=== PATIENT | female | born 1985 | race Caucasian/White ===

== ENCOUNTER 2018-10-06 07:35 | Emergency (ER) | payer OTHER ==
[~2018-10-06] VITALS: Ht 172.7 cm; Wt 66.7 kg
[~2018-10-06 07:35] MED LIST: AUGMENTIN 875-1 EACH PO; CEPHALEXIN500 MG PO; IBUPROFEN200 M1 PO; IBUPROFEN600 MG PO; LEVONORGESTREL1 EACH PO; NORCO 5-325 TA1 EACH PO; PENICILLIN V P500 MG PO; POTASSIUM CHLO10 MEQ PO; PRENATAL VITAM1 EAC3 PO; PRENATAL-FOLIC1 EACH PO; ZOFRAN ODT8 MG PO
--- OUTSIDE RECORDS SUMMARY | 2018-10-06 07:40 | XMS ---
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 E.Julius VISIT COUNT (12 MO.) [facility] [address] [place] [address] TOTAL 3 NOTE: Visits indicate total known visits. ED/UCC VISIT TRACKING (12 MO.) 10/06/2018 07:36 ANJEL Jerry [place] TYPE: Emergency COMPLAINT: - L [facility]BD PA[facility] DIAGNOSES: - Kidney Stone - Flank Pain - Lobulated, fused and horseshoe kidney - Calculus of ureter 09/29/2018 02:40 ANJEL Jerry [place] TYPE: Emergency COMPLAINT: - BLOOD IN URINE DIAGNOSES: - Hydronephrosis with renal and ureteral calculous obstruction - Nicotine dependence, unspecified, uncomplicated - Hypokalemia - Lobulated, fused and horseshoe kidney - Unspecified abdominal pain INPATIENT VISIT TRACKING (12 MO.) No inpatient visits to display in this time frame [id number]
== END 2018-10-06 11:06 | disposition home or self-care (01) ==
LOC: ED 07:35
DX: K59.00 Constipation, unspecified (principal); F17.200 Nicotine dependence, unspecified, uncomplicated; Z79.899 Other long term (current) drug therapy
CPT/HCPCS: 74018; 80053; 81001; 83690; 84703; 85025; 87088; 96374; 99284-25; 99406; J2405

== ENCOUNTER 2019-07-28 20:04 | Emergency (ER) | payer OTHER ==
--- OUTSIDE RECORDS SUMMARY | ~2019-07-28 | XMS | Clinical Summary ---
Demographics + + + | Address | [address] | | | [place] [address] | + + + | Home Phone | | + + + | Preferred Language | Unknown | + + + | Marital Status | Single | + + + | Samaritan Affiliation | Unknown | + + + | Race | Unknown | + + + | Ethnic Group | Unknown | + + + Author + + + | Author | [facility] | | | and Giovanyana | + + + | Organization | [facility] | | | and [...] Team Providers + +------+ + | Care Push Button Switch Assembler Name | Role | Phone | + [...] tablets by | 30 | 0 | /0 | | Activ | | HYDROcodone-acetamin | [...] + + + + | Name | Dates Previously Given | Next Due | + + + [...] Day | | 0.75 | | Started: 1997 | | Smoker | | | | | + +-------+ +--------+ + + +---+---+---+ | Smokeless Tobacco: | | | | | Never Used | | | | + +---+---+---+ + + +---------+ + | Alcohol Use | Drinks/We | oz/Week | Comments | | | ek | | | + + +---------+ + | Yes | 2 Shots | 1.2 | 3 times a week | | | of | | | | | liquor | | | + + +---------+ + + + [...] Filed Vital Signs + + + + | Vital Sign | Reading | Time Taken | + + + + | Blood Pressure | 147/84 | 10/09/2018 1045 PST | + + + + | Pulse | 76 | 10/09/2018 1045 PST | + + + + | Temperature | 36.5 C (97.7 F) | 10/09/2018 0939 PST | + + + + | Respiratory Rate | 16 | 10/09/2018 1000 PST | + + + + | Oxygen Saturation | 99% | 10/09/2018 1045 PST | + + + + | Inhaled Oxygen | - | - | | Concentration | | | + + + + | Weight | 67.6 kg (149 lb 0.5 | 10/09/2018753 PST | | | oz) | | + + + + | Height | 172.7 cm (5' 8") | 10/09/2018753 PST | + + + + | Body Mass Index | 22.66 | 10/09/2018753 PST | + + + + Plan of Treatment + + + + + | Health Maintenance | Due Date | Last Done | Comments | + + + + + | Vaccine: | | | | | Pneumococcal 19-64 | 2 | | | | (PPSV23 only) Medium | | | | | Risk (1 of 1 - | | | | | PPSV23) | | | | + + [...] Frm 6 | Stent | Left: | COOK | | 07/04/ | [id number] | | 22-32 - [id number]: | | Ureter | [employer] | | 2020 | / | | Qty: 1 on 10/09/2018 by | | | - ANTONIO | | | /UFH-6 | | Mark Epps MD | | | | | | 00-R | + +-------+--------+ +--------+--------+--------+ Results Not on [...] | [employer] | MODA | [id number] | 10/03/ | [phone] | | Medica | | MEDICAID HMO [...] Person | Self | [birth year] | | | | al/Fam | | 1985 | [phone] | [place] [address] | | | yarelis | | | 8 (Home) | | + +--------+ +--------+ + + Advance Directives Patient has advance care planning documents, and code status on file. For more information, please contact:[facility] [place] [address] + + + + + | Code Status | Date | Date | Comments | | | Activated | Inactivated | | + + + + + | Full Code | 10/09/2018 | 10/09/2018 | | | | 10:02 | 13:11 | | + + + + +
--- OUTSIDE RECORDS SUMMARY | ~2019-07-28 | XMS | Clinical Summary ---
Demographics + + + | Address | [address] | | | [place] [address] | + + + | Home Phone [...] [facility] | | | and Giovanyana | + + + | Organization | [facility] | | | and [...] Team Providers + +------+ + | Care Dredge Operator Name | Role | Phone | [...] Left: | COOK | | 07/04/ | [id number] | | 22-32 - [id number]: | | Ureter | [employer] | [...] | [employer] | MODA | [id number] | 10/03/ | [phone] | | Medica | | MEDICAID HMO [...] | | al/Fam | | 1985 | [phone] | [place] [address] | | | yarelis | | | 8 (Home) | | + +--------+ +--------+ + + Advance Directives Patient has advance care planning documents, and code status on file. For more information, please contact:[facility] [place] [address] + + + + + | Code Status | Date | Date | Comments | | | Activated | Inactivated | | + + + + + | Full Code | 10/09/2018 | 10/09/2018 | | | | 10:02 | 13:11 | | + + + + +
--- OUTSIDE RECORDS SUMMARY | 2019-07-28 20:06 | XMS ---
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 Rick VISIT COUNT (12 MO.) 1 July [facility]ers TOTAL 4 NOTE: Visits indicate total known visits. ED/UCC VISIT TRACKING (12 MO.) 07/28/2019 20:04 ANJEL Jerry [place] TYPE: Emergency COMPLAINT: - FLANK PAIN 10/06/2018 07:36 ANJEL Jerry [place] TYPE: Emergency COMPLAINT: - L ABD PAIN DIAGNOSES: - Nicotine dependence, unspecified, uncomplicated - Other buttermaker (current) drug therapy - Constipation, unspecified - Unspecified abdominal pain 10/03/2018 09:[address] [facility] [place] TYPE: Emergency DIAGNOSES: - Kidney Stone - Flank Pain - Lobulated, fused and horseshoe kidney - Calculus of ureter 09/29/2018 02:40 ANJEL Roach TYPE: Emergency COMPLAINT: - BLOOD IN URINE DIAGNOSES: - Hydronephrosis with renal and ureteral calculous obstruction - Nicotine dependence, unspecified, uncomplicated - Hypokalemia - Lobulated, fused and horseshoe kidney - Unspecified abdominal pain INPATIENT VISIT TRACKING (12 MO.) No inpatient visits to display in this time frame [id number]
== END 2019-07-28 20:35 | disposition left against medical advice (07) ==
LOC: ED 20:04
DX: R10.9 Unspecified abdominal pain (principal); Z53.21 Procedure and treatment not carried out due to patient leaving prior to being seen by health care provider

== ENCOUNTER 2019-09-23 04:58 | Emergency (ER) | payer OTHER ==
[~2019-09-23] VITALS: Ht 172.7 cm; Wt 68.0 kg
--- OUTSIDE RECORDS SUMMARY | ~2019-09-23 | XMS | Encounter Summary ---
Demographics + + + | Address | [address] | | | [place] [address] | + + + | Home Phone | | + + + | Preferred Language | Unknown | + + + | Marital Status | Single | + + + | Temple Affiliation | Unknown | + + + | Race | Unknown | + + + | Ethnic Group | Unknown | + + + Author + + + | Author | [facility] | | | and Giovanyana | + + + | Organization | [facility] | | | and Giovanyana | + + + | Address | Unknown | + + + | Phone | Unavailable | + + + Support + + +---------+ + | Name | Relationship | Address | Phone | + + +---------+ + | Princess Oakes | ECON | Unknown | | + + +---------+ + Care Team Providers + +------+ + | Care Edger Automatic Name | Role | Phone | + +------+ + | Melba Arce RN | PCP | Unavailable | + +------+ + Encounter Details +--------+ + + + + | Date | Type | Department | Care Team | Description | +--------+ + + + + | 10/07/ | Episode | [facility] | Kush Laguna | | | 2018 | Changes | [address] | | | | | [place] | | | | | | [address] | | | | | | [phone] | | | +--------+ + + + + Social History + +-------+ +--------+ + | Tobacco Use | Types | Packs/Day | Years | Date | | | | | Used | | + +-------+ +--------+ + | Current Every Day | | 0.75 | | Started: 1996 | | Smoker | | | | | + +-------+ +--------+ + + +---+---+---+ | Smokeless Tobacco: | | | | | Never Used | | | | + +---+---+---+ + + +---------+ + | Alcohol Use | Drinks/Week | oz/Week | Comments | + + +---------+ + | Yes | 2 Shots of liquor | 2.0 | 3 times a week | + + +---------+ + + + + | Sex Assigned at | Date Recorded | | | | + + + | Not on file | | + + + + + + + | Job Start Date | Occupation | Industry | + + + + | Not on file | Not on file | Not on file | + + + + + + + + | Travel History | Travel Start | Travel End | + + + + + + | No recent travel history available. | + + documented as of this encounter Plan of Treatment Not on filedocumented as of this encounter Visit Diagnoses Not on filedocumented in this encounter"
--- OUTSIDE RECORDS SUMMARY | ~2019-09-23 | XMS | Encounter Summary ---
Demographics + + + | Address | [address] | | | [place] [address] | + + + | Home Phone | | + + + | Preferred Language | Unknown | + + + | Marital Status | Single | + + + | Alevism Affiliation | Unknown | + + + | Race | Unknown | + + + | Ethnic Group | Unknown | + + + Author + + + | Author | [facility] | | | and Giovanyana | + + + | Organization | [facility] | | | and Giovanyana | [...] Team Providers + +------+ + | Care Decision Support Analyst Name | Role | Phone | + +------+ + | Melba Arce RN | PCP | Unavailable | + +------+ + Encounter Details +--------+ + + + + | Date | Type | Department | Care Team | Description | +--------+ + + + + | 10/07/ | Imaging | [facility] | Provider, | | | 2017 | Exam | [facility] EXTER[facility] | [address] | | | | | IMAGING | [address] [place] | | | | | [phone] | [place] [address] | | +--------+ + + + + Social History + +-------+ +--------+------+ | Tobacco Use | Types | Packs/Day | Years | Date | | | | | Used | | + +-------+ +--------+------+ | Never Assessed | | | | | + +-------+ +--------+------+ + + + | Sex Assigned at [...] Not on filedocumented as of this encounter Procedures + +--------+ + + + | Procedure Name | Priori | Date/Time | Associated Diagnosis | Comments | | | ty | | | | + +--------+ + + + | CT ABDOMEN PELVIS WO | Routin | 09/29/2018 | | Results for this | | CONTRAST | e | 4:20 AM | | procedure are in the | | | | PST | | results section. | + +--------+ + + + documented in this encounter Results CT Abdomen Pelvis wo Contrast (09/29/2018 4:20 AM PST) + + | Specimen | + + | | + + + + + | Narrative | Performed At | + + + | External films for comparison only | [facility] | | | | | No results will be in the chart. | | + + + + +---------+ + + | Performing | Address | City/State/Zipcode | Phone Number | | Organization | | | | + +---------+ + + | [facility] | | | | + +---------+ + + documented in this encounter Visit Diagnoses Not on filedocumented in this encounter"
--- OUTSIDE RECORDS SUMMARY | ~2019-09-23 | XMS | Encounter Summary ---
Demographics + + + | Address | [address] | | | [place] [address] | + + + | Home Phone | | + + + | Preferred Language | Unknown | + + + | Marital Status | Single | + + + | Protestant Affiliation | Unknown | + + + | Race | Unknown | + + + | Ethnic Group | Unknown | + + + Author + + + | Author | [facility] | | | and Giovanyana | + + + | Organization | [facility] | | | and Giovanyana [...] Team Providers + +------+ + | Care Service Greeter Name | Role | Phone | + +------+ + | Melba Arce RN | PCP | Unavailable | + +------+ + Reason for Visit Auth/Cert +--------+--------+ + + + + | Status | Reason | Specialty | Diagnoses / | Referred By | Referred To | | | | | Procedures | Contact | Contact | +--------+--------+ + + + + | | | | Diagnoses | | | | | | | Calculus of | | | | | | | kidney | | | | | | | Kidney | | | | | | | stones | | | | | | | (N20.0) | | | | | | | Procedures | | | | | | | MD | | | | | | | CYSTO/URETER | | | | | | | O | | | | | | | W/LITHOTRIPS | | | | | | | Y &QUENTINWELL | | | | | | | STENT INSRT | | | | | | | Cystoscopy, | | | | | | | left | | | | | | | ureteroscopy | | | | | | | laser | | | | | | | lithotripsy | | | | | | | and stent | | | +--------+--------+ + + + + Encounter Details +--------+ + + + + | Date | Type | Department | Care Team | Description | +--------+ + + + + | 10/09/ | Hospital | [facility] | Mark Epps | | | 2019 | Encounter | MED CTR XRAY [address] | MD Edison [address] [place] [address] | | | | | [place] | [address] [place] | | | | | [place] [address] | [address] | | | | | [phone] | | | +--------+ + + + [...] + + documented as of this encounter Medications at Time of Discharge + + + +---------+ + + | Medication | Sig | Dispensed | Refills | Start | End Date | | | | | | Date | | + + + +---------+ + + | | Take 1-2 tablets by | 30 | 0 | 10/09/19 | | | HYDROcodone-acetamin | mouth every 6 hours | tablet | | 19 | | | ophen (NORCO) 5-325 | as needed for Pain. | | | | | | mg per tablet | | | | | | + + + +---------+ + + | tamsulosin | Take 1 capsule by | 30 | 0 | 10/03/20 | | | (FLOMAX) 0.4 mg CAPS | mouth Daily. | capsule | | 18 | | + + + +---------+ + + | tamsulosin | Take 1 capsule by | 7 | 0 | 10/09/19 | | | (FLOMAX) 0.4 mg CAPS | mouth nightly for 7 | capsule | | 19 | 9 | | | days. | | | | | + + + +---------+ + + documented as of this encounter Plan of Treatment Not on filedocumented as of this encounter Procedures + +--------+ + + + | Procedure Name | Priori | Date/Time | Associated Diagnosis | Comments | | | ty | | | | + +--------+ + + + | FL HUMZA STATS NO | Routin | 10/09/2018 | | Results for this | | CHARGE | e | 9:35 AM | | procedure are in the | | | | PST | | results section. | + +--------+ + + + documented in this encounter Results EMERALD Valencia No Kathy (10/09/2018 9:35 AM PST) + + | Specimen | + + | | + + + + + | Narrative | Performed At | + + + | This exam has been auto-finalized and the interpretation may exist | [facility] | | elsewhere in the chart. | | + + + + +---------+ + + | Performing | Address | City/State/Zipcode | Phone Number | | Organization | | | | + +---------+ + + | [facility] | | | | + +---------+ + + documented in this encounter Visit Diagnoses Not on filedocumented in this encounter"
--- OUTSIDE RECORDS SUMMARY | ~2019-09-23 | XMS | Encounter Summary ---
Demographics + + + | Address | [address] | | | [place] [address] | + + + | Home Phone | | + + + | Preferred Language | Unknown | + + + | Marital Status | Single | + + + | Moravian Affiliation | Unknown | + + + | Race | Unknown | + + + | Ethnic Group | Unknown | + + + Author + + + | Author | [facility] | | | and Giovanyana | + + + | Organization | [facility] | | | and Giovanyana | [...] Team Providers + +------+ + | Care Web Press Operator Assistant Name | Role | Phone | + [...] | | | | | | | [place] | | | | | | | [...] + + | 10/09/ | Hospital | [facility] | Mark Epps | | | 2019 | Encounter | MED CTR XRAY [address] | MD [address] [place] [address] | | | | | Janet Cheunga | [address] | | | | | [place] [address] | [address] | | | | | [phone] | | | +--------+ + + + [...]
--- OUTSIDE RECORDS SUMMARY | ~2019-09-23 | XMS | Encounter Summary ---
Demographics + + + | Address | [address] | | | [place] [address] | + + + | Home Phone | | + + + | Preferred Language | Unknown | + + + | Marital Status | Single | + + + | Adventist Affiliation | Unknown | + + + | Race | Unknown | + + + | Ethnic Group | Unknown | + + + Author + + + | Author | [facility] | | | and Giovanyana | + + + | Organization | [facility] | | | and Giovanyana [...] Team Providers + +------+ + | Care Varnisher Apprentice Name | Role | Phone | + [...] | | | | | | | OR | | | | | | | CYSTO/URETER | | | | | | | O | | | | | | | W/LITHOTRIPS | | | | | | | Y &LAURENT | | | | | | | [...] + + | 10/09/ | Hospital | [facility] | Mark Epps | Ureteral stone | | 2019 | Encounter | [facility] | MD Mikaela Hogan | | | | | [address] | [address] [place] | | | | | [place] | [address] | | | | | [id number] | | | | | | [phone] | | | +--------+ + + + [...] + + documented as of this encounter Last Filed Vital Signs + + + + + | Vital Sign | Reading | Time Taken | Comments | + + + + + | Blood Pressure | 147/84 | 10/09/2018 10:45 AM | | | | | PST | | + + + + + | Pulse | 76 | 10/09/2018 10:45 AM | | | | | PST | | + + + + + | Temperature | 36.5 C (97.7 F) | 10/09/2018 9:39 AM | | | | | PST | | + + + + + | Respiratory Rate | 16 | 10/09/2018 10:00 AM | | | | | PST | | + + + + + | Oxygen Saturation | 99% | 10/09/2018 10:45 AM | | | | | PST | | + + + + + | Inhaled Oxygen | - | - | | | Concentration | | | | + + + + + | Weight | 67.6 kg (149 lb 0.5 | 10/09/2018 7:54 AM | | | | oz) | PST | | + + + + + | Height | 172.7 cm (5' 8") | 10/09/2018 7:54 AM | | | | | PST | | + + + + + | Body Mass Index | 22.66 | 10/09/2018 7:54 AM | | | | | PST | | + + + + + documented in this encounter Discharge Instructions Instructions Marcy Wayne RN - 10/09/2018Formatting of this note might be different fr om the original. Patient to pull the strings and remove her stent on SundayOct 14. F/U in the office in 6 weeks. Shock Wave Lithotripsy Passing a kidney stone can be very painful. Shock wave lithotripsyis a treatment that hel ps by breaking the kidney stone into smaller pieces that are easier to pass. This treatment is also called extracorporeal shock wave lithotripsy (ESWL). Lithotripsy takes about an hour . It s done in a hospital, lithotripsy center, or mobile lithotripsy van. You will likely go home the same day.This treatment is not used for all types of kidney stones. Your healt hcare provider will discuss whether this is the right treatment for the type of stone you gomez ve. Energy waves strike the stone, which begins to crack. The stone crumbles into tiny pieces. During the procedure You get medicine to prevent pain and help you relax or sleep during lithotripsy. Once th is takes effect, the procedure will start. Aflexible tube (stent) with holes in it may be placed into your ureter, the tube that connects the kidney and the bladder. This helps keep urine flowing from the kidney. Your healthcare provider then uses X-ray or ultrasound to find the exact location of the kidney stone. Sound waves are aimed at the stone and sent at high speed. If you re awake, you may fe el a tapping as they pass through your body. After the procedure You ll be closely watched in a recovery room for about 1 to 3 hours. Antibiotics and p ain medicine may be prescribed before you leave. You ll have a follow-up visit in a few weeks. If you received a stent, it will be ruben suzie. Your healthcare provider will also check for pieces of stone. If large pieces remain, y ou may need a second lithotripsy or another procedure. Possible risks and complications Infection Bleeding in the kidney Bruising of the kidney or skin Blockage (obstruction) of the ureter Failure to break up the stone (other procedures may be needed) Passing the stone It can take a day to several weeks for the pieces of stone to leave your body. Drink plenty of liquids to help flush your system. During this time: Your urine may be cloudy or slightly bloody.You may even see small pieces of stone. You may have a slight fever and some pain. Take prescribed or sbxg-ibd-jjdqbak pain medi cine as instructed by your healthcare provider. You may be asked to strain your urine to collect some stone particles. These will be eyal in the lab. When to call your healthcare provider Call your healthcare provider right away if you have any of the following: Fever of 100.4F (38C) or higher, or as directed by your healthcare provider Heavy bleeding Pain that doesn t go away with medicine Upset stomach and vomiting Problems urinating Date Last Reviewed: 10/08/201619992185-2342 [employer]. [address] [place] [address]. All righ ts reserved. This information is not intended as a substitute for professional medical care. Always follow your healthcare professional's instructions. Cystoscopy Cystoscopy is a procedure that lets your doctor look directly inside your urethra and bladd er. It can be used to: Help diagnose a problem with your urethra, bladder, or kidneys. Take a sample (biopsy) of bladder or urethral tissue. Treat certain problems (such as removing kidney stones). Place a stent to bypass an obstruction. Take special X-rays of the kidneys. Based on the findings, your doctor may recommend other tests or treatments. What is a cystoscope? A cystoscope is a telescope-like instrument that contains lenses and fiberoptics (small gla ss wires that make bright light). The cystoscope may be straight and rigid, or flexible to b end around curves in the urethra. The doctor may look directly into the cystoscope, or proje ct the image onto a monitor. Getting ready Ask your doctor if you should stop taking any medicines before the procedure. Ask whether you should avoid eating or drinking anything after midnight before the proce dure. Follow any other instructions your doctor gives you. Tell yourdoctor before the exam if you: Take any medicines, such as aspirin or blood thinners Have allergies to any medicines Are The procedure Cystoscopy is done in the doctor s office, surgery center, or hospital. The doctor and a nurse are present during the procedure. It takes only a few minutes, longer if a biopsy, X-r ay, or treatment needs to be done. During the procedure: You lie on an exam table on your back, knees bent and legs apart. You are covered with a drape. Your urethra and the area around it are washed. Anesthetic jelly may be applied to numb the urethra. Other pain medicine is usually not needed. In some cases, you may be offered a mild sedative to help you relax. If a more extensive procedure is to be done, such as a biop sy or kidney stone removal, general anesthesia may be needed. The cystoscope is inserted. A sterile fluid is put into the bladder to expand it. You ma y feel pressure from this fluid. When the procedure is done, the cystoscope is removed. After the procedure If you had a sedative, general anesthesia, or spinal anesthesia, you must have someone driv e you home. Once you re home: Drink plenty of fluids. You may have burning or light bleeding when you urinate this is normal. Medicines may be prescribed to ease any discomfort or prevent infection. Take these as d irected. Call your doctor if you have heavy bleeding or blood clots, burning that lasts more than a day, a fever [id number] (38 C), or trouble urinating. Date Last Reviewed: 10/08/201619992601-8739 [employer] [address] [place] [address]. All righ ts reserved. This information is not intended as a substitute for professional medical care. Always follow your healthcare professional's instructions. documented in this encounter Medications at Time of Discharge [...] | + +--------+ + + + | EMERALD CHING STATS NO | Routin | 10/09/2018 | | Results for this | | CHARGE | e | 9:35 AM | | procedure are in the | | | | PST | | results section. | + +--------+ + + + | CALCULI ANALYSIS | Routin | 10/09/2018 | | Results for this | | | e | 9:31 AM | | procedure are in the | | | | PST | | results section. | + +--------+ + + + | CYSTOSCOPY | | 10/09/2018 | Kidney stones | | | URETEROSCOPY W/ | | 8:44 AM | (N20.0) | | | LASER | | PST | | | + +--------+ + + + | POCT TEST, | Routin | 10/09/2018 | | Results for this | | URINE, QUAL | e | 7:39 AM | | procedure are in the | | | | PST | | results section. | + +--------+ + + + documented in this encounter Results EMERALD Valencia No Charge (10/09/2018 9:35 AM PST) + + | [...] | | | + +---------+ + + Calculi Analysis (10/09/2018 9:31 AM PST) + + + + + + | Component | Value | Ref Range | Performed | Pathologist | | | | | At | Signature | + + + + + + | CALCULI | CommentComment: | mm | REFERENCE | | | SIZE | Specimens received as a | | [facility] | | | | mixture of whole stones | | - BKR | | | | and fragments. | | | | + + + + + + | Stone | CommentComment: | | REFERENCE | | | Composition | Percentage (Represents | | [facility] | | | | the % composition) | | - BKR | | + + + + + + | Color | Page | | REFERENCE | | | | | | [facility] | | | | | | - BKR | | + + + + + + | Calculi | 20.7 | mg | REFERENCE | | | Weight | | | [facility] | | | | | | - BKR | | + + + + + + | Ca | 05 | % | REFERENCE | | | Oxalate,Dih | | | [facility] | | | ydrate | | | - BKR | | + + + + + + | Ca | 55 | % | REFERENCE | | | Oxalate,Mon | | | [facility] | | | ohydr. | | | - BKR | | + + + + + + | STONE CA | 40 | % | REFERENCE | | | PHOSPHATE | | | [facility] | | | | | | - BKR | | + + + + + + | Nidus | No Nidus visualized | | REFERENCE | | | | | | [facility] | | | | | | - BKR | | + + + + + + | Photo | CommentComment: | | REFERENCE | | | | Photograph will follow | | [facility] | | | | under separate cover. | | - BKR | | + + + + + + | CALCULI | CommentComment: | | REFERENCE | | | COMMENT | Physician questions | | [facility] | | | | regarding Calculi | | - BKR | | | | Analysis contact [facility] | | | | | | at:[phone]. | | | | + + + + + + | Please note | CommentComment: Calculi | | REFERENCE | | | | report with photograph | | [facility] | | | | will follow via | | - BKR | | | | computer, mail orcourier | | | | | | delivery. | | | | + + + + + + | Disclaimer | CommentComment: This | | REFERENCE | | | | test was developed and | | [facility] | | | | its performance | | - BKR | | | | characteristicsdetermine | | | | | | d by [facility]. It has not | | | | | | been cleared or | | | | | | approvedby the Food and | | | | | | Drug Administration. | | | | + + + + + + + + | Specimen | + + | Tissue - Entire left | | ureter (body | | structure) | + + + + + | Narrative | Performed At | + + + | Performed at: [facility] [address], | REFERENCE LAB | | [place], [place] [id number] Water Pump Assembler: Eduin Dominguez MD, Phone: | YUD[facility] - JONH | | [phone] | | + + + + + + + + | Performing | Address | City/State/Zipcode | Phone Number | | Organization | | | | + + + + + | REFERENCE LAB | [address] | [place] [address] | [phone] | | [facility] - [address] | [address] [facility] | | | + + + + + POCT Test, Urine, QUAL (10/09/2018 7:39 AM PST) + + + + + + | Component | Value | Ref Range | Performed | Pathologist | | | | | At | Signature | + + + + + + | | Negative | Negative | | | | Test, | | | | | | Urine, POC | | | | | + + + + + + | Internal QC | Acceptable | Acceptable, Not | | | | | | Performed | | | + + + + + + | Specific | | 1.010, 1.015, | | | | [place], | | 1.020, 1.025 | | | | POC | | | | | + + + + + + | Lot Number | [id number] | | | | + + + + + + | Expiration | 2020-02-16 | | | | | Date | | | | | + + + + + + + + | Specimen | + + | Urine | + + documented in this encounter Visit Diagnoses + + | Diagnosis | + + | Ureteral stone Calculus of ureter | + + | 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 | + + documented in this encounter Administered Medications + +--------+---------+------+------+------+ | Medication Order | MAR | Action | Dose | Rate | Site | | | Action | Date | | | | + +--------+---------+------+------+------+ + +---+ | acetaminophen (TYLENOL) tablet | | | 1,000 mg 1,000 mg, Oral, EVERY 8 | | | HOURS (3 times per day), First | | | dose on Sun10/09/18 at 1400, For 3 | | | days, Start 8 hours after pre-op | | | dose., Post-op/Phase II | | + +---+ | | | + +---+ | albuterol 2.5 mg/3 mL nebulizer | | | solution 2.5 mg 2.5 mg, | | | Nebulization, ONCE PRN, Wheezing, | | | Starting Sun10/09/18 at 0754, For | | | 1 dose, RT will administer., | | | Pre-op | | + +---+ | | | + +---+ | albuterol 2.5 mg/3 mL nebulizer | | | solution 2.5 mg 2.5 mg, | | | Nebulization, ONCE PRN, Wheezing, | | | Starting 10/09/18 at 0930, For | | | 1 dose, Notify anesthesia if | | | patient is wheezing and does not | | | have a history of asthma or COPD | | | or current smoking., | | | Recovery/Phase I | | + +---+ | | | + +---+ | albuterol-ipratropium 2.5-0.5 | | | mg/3 mL nebulizer solution 3 mL | | | 3 mL, Nebulization, ONCE PRN, | | | Wheezing, Starting 10/09/18 at | | | 0754, For 1 dose, Pre-op | | + +---+ | | | + +---+ | albuterol-ipratropium 2.5-0.5 | | | mg/3 mL nebulizer solution 3 mL | | | 3 mL, Nebulization, ONCE PRN, | | | Wheezing, Shortness of Breath, | | | Starting 10/09/18 at 0930, For | | | 1 dose, Recovery/Phase I | | + +---+ | | | + +---+ + +-------+ +--------+---+---+ | ciprofloxacin (CIPRO) tablet | Given | 10/09/19 | 500 mg | | | | 500 mg 500 mg, Oral, ONCE, Sun | | 8:15 | | | | | 10/09/18 at 0815, For 1 dose, Give | | AM PST | | | | | 2 hours before or 6 hours after | | | | | | | antacids, dairy, calcium, iron, | | | | | | | or zinc., Pre-op, Indications: | | | | | | | Surgical Prophylaxis | | | | | | + +-------+ +--------+---+---+ + +---+ | | | + +---+ | dextrose 50% injection 12.5-25 | | | g 12.5-25 g, Intravenous, EVERY | | | 15 MIN PRN, Low Blood Sugar, Give | | | 12.5g (25 mL) IV if blood | | | glucose 50-69 mg/dL. Give 25g | | | (50 mL) IV if blood glucose < 50, | | | Starting 10/09/18 at 0754, | | | Repeat in 15 min if blood glucose | | | remains < 70 mg/dL. Repeat | | | blood glucose in 30 min once | | | blood glucose > 70., Pre-op | | + +---+ | | | + +---+ | dextrose 50% injection 12.5-25 | | | g 12.5-25 g, Intravenous, EVERY | | | 15 MIN PRN, Low Blood Sugar, For | | | hypoglycemia. Give 12.5g (25ml) | | | IV if blood glucose 50-69 | | | mg/dL. Give 25g (50ml) IV if | | | blood glucose < 50, Starting Wed | | | 10/09/18 at 0930, Give over 2 min. | | | Repeat in 15 min if blood | | | glucose remains < 70 mg/dL. | | | Repeat blood glucose in 30 min | | | once blood glucose > 70., | | | Recovery/Phase I | | + +---+ | | | + +---+ | ePHEDrine 50 mg/mL injection 5 | | | mg 5 mg, Intravenous, EVERY 5 | | | MIN PRN, if SBP <90., Starting | | | 10/09/18 at 0930, Hold if HR > | | | 100. Maximum total dose 20mg., | | | Recovery/Phase I | | + +---+ | | | + +---+ | fentaNYL (PF) injection 25-50 | | | mcg 25-50 mcg, Intravenous, | | | EVERY 5 MIN PRN, Pain, Starting | | | Sun10/09/18 at 0930, Maximum total | | | dose 250 mcg. PACU IV Narcotic | | | Priority: Only use fentanyl for | | | immediate post-op pain (one dose) | | | or breakthrough pain when any | | | other IV narcotics ordered have | | | been ineffective (if ordered). | | | If both morphine and | | | hydromorphone are ordered, use | | | morphine first, and use | | | hydromorphone if morphine | | | ineffective., Recovery/Phase I | | + +---+ | | | + +---+ | hydrALAZINE (APRESOLINE) | | | injection 5 mg 5 mg, | | | Intravenous, EVERY 20 MINUTES | | | PRN, For SBP > 180, DBP > 100, | | | Starting Sun10/09/18 at 0930, Hold | | | if HR > 100. Maximum total dose | | | 40 mg. Use labetalol first if | | | available., Recovery/Phase I | | + +---+ | | | + +---+ | HYDROmorphone (DILAUDID) | | | injection 0.2-0.5 mg 0.2-0.5 mg, | | | Intravenous, EVERY 5 MIN PRN, | | | Pain, Starting Sun10/09/18 at | | | 0930, Maximum total dose 4 mg. | | | PACU IV Narcotic Priority: Only | | | use fentanyl for immediate | | | post-op pain (one dose) or | | | breakthrough pain when any other | | | IV narcotics ordered have been | | | ineffective (if ordered). If | | | both morphine and hydromorphone | | | are ordered, use morphine first, | | | and use hydromorphone if morphine | | | ineffective., Recovery/Phase I | | + +---+ | | | + +---+ | HYDROmorphone (DILAUDID) | | | injection 0.25-1 mg 0.25-1 mg, | | | Intravenous, EVERY 2 HOURS PRN, | | | Pain, Starting Sun10/09/18 at | | | 1002, If oral route not an | | | option. Slow IV push, not faster | | | than 0.3mg/minute. First dose | | | must be lowest dose, titrate to | | | effective dose by repeat of | | | lowest dose every 30 minutes prn | | | pain, may not exceed maximum dose | | | ordered per interval. Use Pasero | | | Sedation Scale., Post-op/Phase | | | II | | + +---+ | | | + +---+ | ibuprofen (ADVIL, MOTRIN) | | | tablet 400 mg 400 mg, Oral, | | | EVERY 8 HOURS (3 times per day), | | | First dose on Sun10/09/18 at 2200, | | | For 9 doses, If urine output is | | | less than 240ml/8 hours (30ml/hr) | | | or if signs of bleeding, contact | | | MD and hold. Administer with | | | food or snack, Post-op/Phase II | | + +---+ | | | + +---+ + +-------+ +-------+---+---+ | ketorolac (TORADOL) injection | Given | 10/09/19 | 15 mg | | | | 15 mg 15 mg, Intravenous, ONCE, | | 19 10:38 | | | | | 10/09/18 at 1030, For 1 dose, | | AM PST | | | | | If urine output is less than | | | | | | | 240ml/8 hours (30ml/hr) or if | | | | | | | signs of bleeding, contact MD and | | | | | | | hold., Post-op/Phase II | | | | | | + +-------+ +-------+---+---+ + +---+ | | | + +---+ | labetalol (TRANDATE) 5 mg/mL | | | injection 5 mg 5 mg, | | | Intravenous, EVERY 5 MIN PRN, For | | | SBP > 180, DBP > 100, Starting | | | 10/09/18 at 0930, Hold if HR < | | | 60. Maximum total dose 300mg. | | | Notify anesthesia if patient | | | requires more than 50mg., | | | Recovery/Phase I | | + +---+ | | | + +---+ + +---------+ +---+---+---+ | lactated ringers (LR) infusion | New Bag | 10/09/19 | | | | | at 10-100 mL/hr, Intravenous, | | 19 8:15 | | | | | CONTINUOUS, Starting Sun10/09/18 | | AM PST | | | | | at 0815, TKO., Pre-op | | | | | | + +---------+ +---+---+---+ + +---+ | | | + +---+ | meperidine (DEMEROL) injection | | | 12.5-25 mg 12.5-25 mg, | | | Intravenous, PRN, Shivering, | | | Starting Sun10/09/18 at 0930, For | | | 2 doses, May Repeat once in 5 | | | min., Recovery/Phase I | | + +---+ | | | + +---+ | metoclopramide (REGLAN) 5 mg/mL | | | injection 10 mg 10 mg, | | | Intravenous, EVERY 6 HOURS PRN, | | | Nausea, Vomiting, Starting Wed | | | 10/09/18 at 0930, For 2 doses, | | | Protect from light., | | | Recovery/Phase I | | + +---+ | | | + +---+ | ondansetron (ZOFRAN) injection | | | 4 mg 4 mg, Intravenous, ONCE | | | PRN, Nausea, Starting 10/09/18 | | | at 0930, For 1 dose, | | | Recovery/Phase I | | + +---+ | | | + +---+ + +-------+ +------+---+---+ | oxybutynin (DITROPAN) tablet 5 | Given | 10/09/19 | 5 mg | | | | mg 5 mg, Oral, EVERY 8 HOURS | | 19 10:36 | | | | | PRN, Bladder Spasms, Starting Wed | | AM PST | | | | | 10/09/18 at 1002, Hold all | | | | | | | antispasmodics after 0200 hours., | | | | | | | Post-op/Phase II | | | | | | + +-------+ +------+---+---+ + +---+ | | | + +---+ | oxyCODONE (ROXICODONE) tablet | | | 5-20 mg 5-20 mg, Oral, EVERY 3 | | | HOURS PRN, Pain, Starting Wed | | | 10/09/18 at 1002, First dose must | | | be the lowest dose, can titrate | | | to effective dose by repeat of | | | lowest dose every 60 minutes prn | | | pain, may not exceed maximum dose | | | ordered per interval. Use Pasero | | | Sedation Scale., Post-op/Phase | | | II | | + +---+ | | | + +---+ + +-------+ +--------+---+---+ | phenazopyridine (PYRIDIUM) | Given | 10/09/19 | 200 mg | | | | tablet 200 mg 200 mg, Oral, 3 | | 19 10:36 | | | | | TIMES DAILY PRN, Urinary | | AM PST | | | | | Symptoms, urinary burning., | | | | | | | Starting Sun10/09/18 at 1002, | | | | | | | Administer with meals., | | | | | | | Post-op/Phase II | | | | | | + +-------+ +--------+---+---+ + +---+ | | | + +---+ | promethazine (PHENERGAN) (IV | | | ONLY) injection 6.25 mg 6.25 mg, | | | Intravenous, EVERY 15 MIN PRN, | | | Nausea, Vomiting, Starting Wed | | | 10/09/18 at 0930, For 4 doses, | | | TAKE PRECAUTIONS WHEN | | | ADMINISTERING Dilute to 10-20mL | | | with NS. Give over 2-3 minutes | | | into large vein. Use ondansetron | | | first if both are ordered., | | | Recovery/Phase I | | + +---+ | | | + +---+ + +-------+ +--------+---+---+ | tamsulosin (FLOMAX) capsule 0.4 | Given | 10/09/19 | 0.4 mg | | | | mg 0.4 mg, Oral, DAILY AFTER | | 19 10:37 | | | | | BREAKFAST, First dose on Wed | | AM PST | | | | | 10/09/18 at 1030, May open capsule | | | | | | | and sprinkle over acidic soft | | | | | | | food (applesauce, yogurt) or in a | | | | | | | small quantity of acidic fruit | | | | | | | juice (orange, grape). Do not | | | | | | | crush, chew or dissolve | | | | | | | granules., Post-op/Phase II | | | | | | + +-------+ +--------+---+---+ +---+---+ | | | +---+---+ documented in this encounter
--- OUTSIDE RECORDS SUMMARY | ~2019-09-23 | XMS | Encounter Summary ---
Demographics + + + | Address | [address] | | | [place] [address] | + + + | Home Phone | | + + + | Preferred Language | Unknown | + + + | Marital Status | Single | + + + | Advent Affiliation | Unknown | + + + | Race | Unknown | + + + | Ethnic Group | Unknown | + + + Author + + + | Author | [facility] | | | and Giovanyana | + + + | Organization | [facility] | | | and [...] Team Providers + +------+ + | Care Vamp Maker Name | Role | Phone | + [...] | | | | | | | [place] | | | | | | | [...] +--------+--------+ + + + + Encounter Details +--------+---------+ + + + | Date | Type | Department | Care Team | Description | +--------+---------+ + + + | 10/09/ | Surgery | [facility] | Mark Epps | Cystoscopy, left | | 2019 | | MED CTR OR INTRA OP | MD Edison [address] | ureteroscopy laser | | | | [address] | [address] [place] | lithotripsy and | | | | [place] | [id number] | stent | | | | [address] | | | | | | [phone] | | | +--------+---------+ + + + Social History + +-------+ [...] fever and some pain. Take prescribed or atmo-lzl-usutgtg pain medi cine as instructed by your [...] and vomiting Problems urinating Date Last Reviewed: 10/08/201619994584-5577 [employer]. [address] [place] [address]. All righ ts reserved. This information is [...] lasts more than a day, a fever [id number] (38 C), or trouble urinating. Date Last Reviewed: 10/08/201619993397-6875 [employer]. [address] [place] [address], [place] [address]. All righ ts reserved. This information is [...] + + documented in this encounter Results [place] [employer] Stats No Charge (10/09/2018 9:35 AM PST) + [...] [facility] | | | | | | at:[phone]. | | | | + + + [...] test was developed and | | [facility] | | | | its performance | | - BKR | | | | characteristicsdetermine | | | | | | d by [employer]. It has not | | | | [...] + | Performed at: 01 - [facility] [address], | REFERENCE LAB | | [place] [phone] Commuter Pilot: Eduin Dominguez MD, Phone: | [facility]ORJA | | [phone] | | + + + + + + + + | Performing | Address | City/State/Zipcode | Phone Number | | Organization | | | | + + + + + | REFERENCE LAB | [address] | [place] [address] | [phone] | | [facility] - [address] | [address] | | | + + + + [...] | 1.010, 1.015, | | | | [place], | | 1.020, 1.025 | | | | POC | | | | | + + + + + + | Lot Number | [id number] | | | | + + + + + + | Expiration | 2020-02-16 | | | | | Date | | | | | + + + + + + + + | Specimen | + + | Urine | + + documented in this encounter Visit Diagnoses Not on filedocumented in this encounter Administered Medications + +--------+---------+------+------+------+ [...] Wheezing, | | | Starting 10/09/18 at 0754, For | | | 1 [...] 500 mg, Oral, ONCE, Sun | | 19 8:15 | | | | | 10/09/18 [...] MIN PRN, Pain, Starting | | | 10/09/18 at 0930, Maximum total | | | [...] 19 10:38 | | | | | Sun10/09/18 at 1030, For 1 dose, | | [...] DBP > 100, Starting | | | Sun10/09/18 at 0930, Hold if HR < | [...] | | | | | CONTINUOUS, Starting 10/09/18 | | AM PST | | | | | at 0815, TKO., Pre-op | | | | | | + +---------+ +---+---+---+ + +---+ | | | + +---+ | meperidine (DEMEROL) injection | | | 12.5-25 mg 12.5-25 mg, | | | Intravenous, PRN, Shivering, | | | Starting 10/09/18 at 0930, For | | | 2 [...]
--- OUTSIDE RECORDS SUMMARY | ~2019-09-23 | XMS | Encounter Summary ---
Demographics + + + | Address | [address] | | | [place] [address] | + + + | Home Phone | | + + + | Preferred Language | Unknown | + + + | Marital Status | Single | + + + | Buddhist Affiliation | Unknown | + + + | Race | Unknown | + + + | Ethnic Group | Unknown | + + + Author + + + | Author | [facility] | | | and Giovanyana | + + + | Organization | [facility] | | | and Giovanyana [...] Team Providers + +------+ + | Care Core Inserter Name | Role | Phone | + [...] | | | | | | | [place] | | | | | | | [...] + + | 10/09/ | Hospital | [facility] | Mark Epps | Ureteral stone | | 2019 | Encounter | MED CTR OR INTRA OP | MD Mikaela Hogan | | | | | [address] | [address] [place] | | | | | [place] | [address] | | | | | [address] | | | | | | [phone] | | | +--------+ + + + [...] fever and some pain. Take prescribed or vjlv-ozr-zqdqemf pain medi cine as instructed by your [...] and vomiting Problems urinating Date Last Reviewed: 10/08/201619993897-1844 [employer]. [address] [place] [address]. All righ ts reserved. This information is [...] lasts more than a day, a fever [id number] (38 C), or trouble urinating. Date Last Reviewed: 10/08/201619992640-3425 [employer]. [address] [place] [address]. All righ ts reserved. This information is [...] [facility] | | | | | | at:[phone]. | | | | + + + [...] test was developed and | | [facility] | | | | its performance | | - BKR | | | | characteristicsdetermine | | | | | | d by [facility]. It has not | | | | [...] [address] Mehta, | REFERENCE LAB | | [place], [place] [id number] All Terrain Vehicle Racer: Eduin Dominguez MD, Phone: | [facility] - JONH | | [phone] | | + + + + + + + + | Performing | Address | City/State/Zipcode | Phone Number | | Organization | | | | + + + + + | REFERENCE LAB | [address] | [place] [address] | [phone] | | [facility] - [address] | Drive [facility] | | | + + + + [...] | 1.010, 1.015, | | | | [place], | | 1.020, 1.025 | | | | POC | | | | | + + + + + + | Lot Number | [id number] | | | | + + + [...]
--- OUTSIDE RECORDS SUMMARY | ~2019-09-23 | XMS | Encounter Summary ---
Demographics + + + | Address | [address] | | | [place] [address] | + + + | Home Phone | | + + + | Preferred Language | Unknown | + + + | Marital Status | Single | + + + | Taoist Affiliation | Unknown | + + + | Race | Unknown | + + + | Ethnic Group | Unknown | + + + Author + + + | Author | [facility] | | | and Giovanyana | + + + | Organization | [facility] | | | and [...] Team Providers + +------+ + | Care Systems Operator Name | Role | Phone | + +------+ + | Melba Arce RN | PCP | Unavailable | + +------+ + Reason for Visit + + + | Reason | Comments | + + + | New Patient | left ureteral stone, horseshoe kidney | + + + Evaluate & Treat (Routine) +--------+ + + + + + | Status | Reason | Specialty | Diagnoses / | Referred By | Referred To | | | | | Procedures | Contact | Contact | +--------+ + + + + + | Closed | Specialty | Urology | Diagnoses | [place], | [place], | | | Services | | Left | Tye Sahu, | Mark Hogan, | | | Required | | ureteral | MD [address] | MD [address] | | | | | stone | [address] | [address] [place] | | | | | [place] | [facility] | [place] | | | | | kidney | [place], | [address] Phone: | | | | | | [place] | [phone] | | | | | | [address] | Fax: | | | | | | Phone: | [phone] | | | | | | [phone] | | | | | | | Fax: | | | | | | | [phone] | | +--------+ + + + + + Encounter Details +--------+---------+ + + + | Date | Type | Department | Care Team | Description | +--------+---------+ + + + | 10/07/ | Office | [facility] | Mark Epps | Kidney stones | | 2018 | Visit | [address] | MD Edison [address] | (Primary Dx); | | | | [place], [place] | [place], [place] | Pyuria; Proteinuria, | | | | [id number] | [address] | unspecified type; | | | | [phone] | | Microscopic | | | | | | hematuria; Flank | | | | | | pain | +--------+---------+ + + + Social History [...] + + + | Blood Pressure | 138/74 | 10/07/2018 9:45 AM | | | | | PST | | + + + + + | Pulse | 90 | 10/07/2018 9:45 AM | | | | | PST | | + + + + + | Temperature | - | - | | + + + + + | Respiratory Rate | 20 | 10/07/2018 9:45 AM | | | | | PST | | + + + + + | Oxygen Saturation | - | - | | + + + + + | Inhaled Oxygen | - | - | | | Concentration | | | | + + + + + | Weight | 66 kg (145 lb 8.1 | 10/07/2018 9:45 AM | | | | oz) | PST | | + + + + + | Height | 174 cm (5' 8.5") | 10/07/2018 9:45 AM | | | | | PST | | + + + + + | Body Mass Index | 21.8 | 10/07/2018 9:45 AM | | | | | PST | | + + + + + documented in this encounter Patient Instructions Patient Instructions Kush Laguna RN - 10/07/2018 10:00 AM PSTPreoperative Instruct ions Your surgery with Dr. Epps has been scheduled for October 09, 2018 at 9:00 AM at [facility]. Please report to the [facility] no later than 7:30 AM. REMEMBER: NOTHING TO EAT OR DRINK AFTER MIDNIGHT October 08, 2018. Please hold all of your medications the morning of the surgery. NO ASPIRIN OR ASPIRIN PRODUCTS, NO FISH OIL OR VITAMIN E FOR ONE WEEK PRIOR TO SURGERY. Ty lenol (acetaminophen) and ibuprofen is OK. You will need someone to drive you home after surgery. Call us at [phone] with any questions. [x] Pain management booklet provided to patient. documented in this encounter Progress Notes Mark Epps MD - 10/07/2018 10:00 AM PSTFormatting of this note might be differ ent from the original. Chief Complaint Patient presents with New Patient left ureteral stone, horseshoe kidney HPI Tonya Andrea is a 33 y.o. female patient of Melba Arce RN here today for an e valuation for left ureteral stone, horseshoe kidney. Presented to the ED on Sep 29 with acute onset of bilateral low back pain which eventuall y lateralized to the left side. Has had occasional bouts of nausea and vomiting. Has presented to the ED on several occasions with worsening pain. Has had intermittent gross hematuria. This morning complains more of abdominal pain/bloating than flank or back pain. Assessment Tonya was seen today for new patient. Diagnoses and all orders for this visit: Kidney stones - Case request: Cystoscopy, left ureteroscopy laser lithotripsy and stent; Left Pyuria - POCT Urinalysis Dipstick Automated - Urinalysis, Microscopic Only, with Culture if Indicated Proteinuria, unspecified type - POCT Urinalysis Dipstick Automated - Urinalysis, Microscopic Only, with Culture if Indicated Microscopic hematuria - POCT Urinalysis Dipstick Automated - Urinalysis, Microscopic Only, with Culture if Indicated Flank pain Plan To OR for left-sided ureteroscopy laser lithotripsy and stent. We discussed risks includin g pain, bleeding, infection, trauma to the urethra, trauma to the bladder, ureteral perforat ion, ureteral stricture, renal hematoma and need for further procedures. Past Medical History Past Medical History: Diagnosis Date Hematuria about a year ago Past Surgical History Past Surgical History: Procedure Laterality Date WISDOM TOOTH EXTRACTION Family History: Family History Problem Relation Age of Onset Heart disease Father Cancer Maternal Grandmother lung Prostate cancer Neg Hx Social History: Social History Social History Marital status: Single Spouse name: N/A Number of children: N/A Years of education: N/A Social History Main Topics Smoking status: Current Every Day Smoker Packs/day: 0.75 Start date: 1996 Smokeless tobacco: Never Used Alcohol use 1.2 oz/week 2 Shots of liquor per week Comment: 3 times a week Drug use: No Sexual activity: Yes Partners: Male control/ protection: No Other Topics Concern None Social History Narrative None No Known Allergies Medications: Current Outpatient Prescriptions: ibuprofen (ADVIL,MOTRIN) 600 MG tablet, Take 1 tablet by mouth every 6 hours for 5 day s., Disp: 20 tablet, Rfl: 0 tamsulosin (FLOMAX) 0.4 mg CAPS, Take 1 capsule by mouth Daily., Disp: 30 capsule, Rfl : 0 ROS Objective BP 138/74 | Pulse 90 | Resp 20 | Ht 1.74 m (5' 8.5") | Wt 66 kg (145 lb 8.1 oz) | LMP 10/03/2018 | BMI 21.80 kg/m General Appearance: Alert, cooperative, mild distress, appears stated age Head: Normocephalic, without obvious abnormality, atraumatic Eyes: conjunctiva/corneas clear, EOM's intact Throat: Lips, mucosa, and tongue normal; no gross deformities, mmm Neck: Supple, symmetrical, no adenopathy Lungs: Regular, unlabored breathing MS left CVA tenderness, no spinal tenderness, no scoliosis present Normal external genitalia, no erythema, edema or rash Abdomen: Soft, non-tender, no masses Extremities: Extremities normal, atraumatic, no cyanosis, clubbing, or edema Pulses: Radial pulses 2+ and symmetric Skin: Warm and dry Lymph nodes: Cervical and supraclavicular nodes normal Neurologic: Gait normal, CN 2-12 grossly intact; Strength and sensation grossly normal in b ilateral upper and lower extremities Data: CT scan the abdomen and pelvis September 2018 I personally reviewed and interpreted CT scan images. Significant for horseshoe appearing kidney. There is evidence of left-sided hydronephrosis. There is a small stone seen in the inferior pole of the left kidney. There is approximately 9 mm stone in the proximal ureter on the left. The bladder appears normal. REVIEW OF SYSTEMS: [] Marked All Negative Constitutional Symptoms: [] Fever [] Chills [] Headache [] Change in appetite [] Change in weight [] Change in energy [] Other: Neurological: [] Tremors [] Dizzy Spells [] Numbness/Tingling [] Seizures [] Other: Endocrine: [] Excessive thirst [] Too hot [] Too cold [] Tired/Sluggish Gastrointestinal: [x] Abdominal pain [x] Nausea/Vomiting [] Indigestion/heartburn [x] Change in s tool size [] Change in stool shape [] Change in stool color [] Pain with swallow ing [] Other: Cardiovascular: [] Chest Pain [] Rapid heart rate [] High blood pressure [] Other: Integumentary: [] Skin rash [] Boils [] Persistent itch [] Other: Musculoskeletal: [] Neck Pain [] Joint swelling/pain [] Back pain [] Bone pain [] Other: Respiratory: [] Wheezing [] Frequent cough [] Shortness of breath [] Other: Hematologic/Lymphatic: [] Swollen glands [] Blood clotting issues [] Prior blood transfusions []Other: Psychologic: Are you generally satisfied with your life? yes Do you feel severely depressed? no Have you considered suicide? no Habits: Do you smoke? yes Results for orders placed or performed in visit on 10/07/18 Urinalysis, Microscopic Only, with Culture if Indicated Result Value Ref Range WBC UA 5-10 (A) 0 - 2 /HPF RBC UA 2-5 (A) 0 - 2 /HPF SQUAMOUS EPITHELIAL UA 25-50 (A) 0 - 2 /LPF BACTERIA UA Negative Negative /HPF MUCUS UA Present (A) Negative /LPF URINE COMMENT Urine Culture Not Indicated POCT Urinalysis Dipstick Automated Result Value Ref Range Color, UA, POC Pau (A) Yellow, Light Yellow Clarity, UA, POC Slightly Cloudy Glucose, UA, POC Negative Negative Bilirubin, UA, POC Negative Negative Ketones, UA, POC Negative Negative, 100 mg/dL Specific [place], UA, POC 1.015 1.001 - 1.030 Blood, UA, POC Moderate (A) Negative pH, UA, POC 7.5 5.0, 6.0, 7.0, 8.0, 5.5, 6.5, 7.5 Protein, UA, POC 300 mg/dL (A) Negative Urobilinogen, UA, POC 1.0 E.U./dL 0.2, Negative, Normal, < 0.2 mg/dL, 1 mg/dL, < 0.2 E.U./ dl, 1.0 E.U./dL, 0.2 mg/dL Nitrite, UA, POC Negative Negative Leukocyte Esterase, UA, POC Small (A) Negative Reducing Substances, Urine Ictotest Negative Remark Lab Results Component Value Date CREA 0.90 10/03/2018 Melba Arce RN's notes were reviewed in clinic today. No Follow-up on file.. This document was generated in part using voice recognition software. Frequent wrong word or sound-alike substitutions may have occurred due to the inherent limitations of the voice recognition software. Although I have attempted to edit the content, I have not thoroughly proofread this note, and commercial engineer errors are very likely to occur. CC: Melba Arce RN documented in this encounter Plan of Treatment Not on filedocumented as of this encounter Procedures + +--------+ + + + | Procedure Name | Priori | Date/Time | Associated Diagnosis | Comments | | | ty | | | | + +--------+ + + + | URINALYSIS, | Routin | 10/07/2018 | Microscopic | Results for this | | MICROSCOPIC ONLY, | e | 9:25 AM | hematuria | procedure are in the | | WITH CULTURE IF | | PST | Proteinuria, | results section. | | INDICATED | | | unspecified type | | | | | | Pyuria | | + +--------+ + + + | POCT URINALYSIS, | Routin | 10/07/2018 | Microscopic | Results for this | | AUTO WITH CONF | e | 9:24 AM | hematuria | procedure are in the | | | | PST | Proteinuria, | results section. | | | | | unspecified type | | | | | | Pyuria | | + +--------+ + + + documented in this encounter Results Urinalysis, Microscopic Only, with Culture if Indicated (10/07/2018 9:25 AM PST) + + + + + + | Component | Value | Ref Range | Performed | Pathologist | | | | | At | Signature | + + + + + + | WBC UA | 5-10 (A) | 0 - 2 /HPF | [facility] | | | | | | [facility] | | | | | | [facility] | | | | | [facility] - | | | | | | LABORATORY | | + + + + + + | RBC UA | 2-5 (A) | 0 - 2 /HPF | [facility] | | | | | | [facility] | | | | | | [facility] | | | | | | [facility] - | | | | | | LABORATORY | | + + + + + + | SQUAMOUS | 25-50 (A) | 0 - 2 /LPF | [facility] | | | EPITHELIAL | | | [facility] | | | [facility]A | | | MEDICAL | | | | | | C[facility] - | | | | | | LABORATORY | | + + + + + + | BACTERIA UA | Negative | Negative /HPF | [facility] | | | | | | [facility] | | | | | | [facility] | | | | | | [facility] - | | | | | | LABORATORY | | + + + + + + | MUCUS UA | Present (A) | Negative /LPF | [facility] | | | | | | [facility] | | | | | | [facility] | | | | | | [facility] - | | | | | | LABORATORY | | + + + + + + | URINE | Urine Culture Not | | [facility] | | | COMMENT | Indicated | | [facility] | | | | | | [facility] | | | | | | [facility] - | | | | | | LABORATORY | | + + + + + + + + | Specimen | + + | Urine - Urine | | specimen obtained by | | clean catch | | procedure (specimen) | + + + + + + + | Performing | Address | City/State/Zipcode | Phone Number | | Organization | | | | + + + + + | [facility] | [address] | [place] | [phone] | | [facility] | | [address] | | | - LABORATORY | | | | + + + + + POCT Urinalysis Dipstick Automated (10/07/2018 9:24 AM PST) + + + + + + | Component | Value | Ref Range | Performed | Pathologist | | | | | At | Signature | + + + + + + | Color, UA, | Pau (A) | Yellow, Light | | | | POC | | Yellow | | | + + + + + + | Clarity, | Slightly Cloudy | | | | | UA, POC | | | | | + + + + + + | Glucose, | Negative | Negative | | | | UA, POC | | | | | + + + + + + | Bilirubin, | Negative | Negative | | | | UA, POC | | | | | + + + + + + | Ketones, | Negative | Negative, 100 | | | | UA, POC | | mg/dL | | | + + + + + + | Specific | 1.015 | 1.001 - 1.030 | | | | [place], | | | | | | UA, POC | | | | | + + + + + + | Blood, UA, | Moderate (A) | Negative | | | | POC | | | | | + + + + + + | pH, UA, POC | 7.5 | 5.0, 6.0, 7.0, | | | | | | 8.0, 5.5, 6.5, | | | | | | 7.5 | | | + + + + + + | Protein, | 300 mg/dL (A) | Negative | | | | UA, POC | | | | | + + + + + + | Urobilinoge | 1.0 E.U./dL | 0.2, Negative, | | | | n, UA, POC | | Normal, < 0.2 | | | | | | mg/dL, 1 mg/dL, | | | | | | < 0.2 E.U./dl, | | | | | | 1.0 E.U./dL, | | | | | | 0.2 mg/dL | | | + + + + + + | Nitrite, | Negative | Negative | | | | UA, POC | | | | | + + + + + + | Leukocyte | Small (A) | Negative | | | | Esterase, | | | | | | UA, POC | | | | | + + + + + + | Reducing | | | | | | Substances, | | | | | | Urine | | | | | + + + + + + | Ictotest | | Negative | | | + + + + + + | Remark | | | | | + + + + + + + + | Specimen | + + | Urine | + + documented in this encounter Visit Diagnoses + + | Diagnosis | + + | Kidney stones - Primary Calculus of kidney | + + | Pyuria Other nonspecific finding on examination of urine | + + | Proteinuria, unspecified type | + + | Microscopic hematuria | + + | Flank pain Abdominal pain, unspecified site | + + documented in this encounter
--- OUTSIDE RECORDS SUMMARY | ~2019-09-23 | XMS | Encounter Summary ---
Demographics + + + | Address | [address] | | | [place] [address] | + + + | Home Phone | | + + + | Preferred Language | Unknown | + + + | Marital Status | Single | + + + | Confucianist Affiliation | Unknown | + + + | Race | Unknown | + + + | Ethnic Group | Unknown | + + + Author + + + | Author | [facility] | | | and Giovanyana | + + + | Organization | [facility] | | | and Giovanyana [...] Team Providers + +------+ + | Care Telephone Triage Nurse Name | Role | Phone | + [...] | | | | | | Y &INDWELL | | | | | | | [...] + + + + | 10/09/ | Anesthesia | LINDA MURPHY | Fabian Dwyer | | | 2019 | Event | [facility] | [place] [address] | | | | | [address] | [address] [place] | | | | | [place] | [place] [id number] | | | | | [address] | [phone] | | | | | [phone] | | | | | | | [place], | | | | | | [address] | | | | | | [place] | | | | | | [address] | | | | | | [phone] | | | | | | | | +--------+ + + + + Anesthesia Record + + + + + | Procedure Name | Responsible | Anesthesia Start | Anesthesia Stop Time | | | Anesthesiologist | Time | | + + + + + | Cystoscopy, left | Fabian Lugo | 10/09/18 0844 | 10/09/18 0943 | | ureteroscopy carin | MD Sandrita | | | | lithotripsy and | | | | | stent (Left Ureter) | | | | + + + + + +----+---+ + + | Da | T | Event | Comment | | te | i | | | | | m | | | | | e | | | +----+---+ + + | 01 | 0 | Antibiotic | | | /0 | 8 | Given | | | 2/ | 1 | | | | 20 | 5 | | | | 19 | | | | +----+---+ + + | | 0 | | | | | 8 | | | | | 1 | | | | | 7 | | | +----+---+ + + | | 0 | An Checkout | Pre-use anesthesia machine/equipment checkout. | | | 8 | | | | | 4 | | | | | 2 | | | +----+---+ + + | | 0 | An Start | Reassessment prior to anesthesia induction/procedure. | | | 8 | | | | | 4 | | | | | 4 | | | +----+---+ + + | | 0 | Preoxygenat | | | | 8 | ed | | | | 4 | | | | | 7 | | | +----+---+ + + | | 0 | An | | | | 8 | Induction | | | | 4 | | | | | 9 | | | +----+---+ + + | | 0 | An | | | | 8 | Intubation | | | | 5 | | | | | 0 | | | +----+---+ + + | | 0 | [place] | | | | 8 | 43-degrees | | | | 5 | | | | | 6 | | | +----+---+ + + | | 0 | First | | | | 9 | Inc/Proc St | | | | 0 | | | | | 0 | | | +----+---+ + + | | 0 | Pre-Procedu | | | | 9 | ral Timeout | | | | 0 | Completed | | | | 1 | | | +----+---+ + + | | 0 | [place] off | | | | 9 | | | | | 3 | | | | | 6 | | | +----+---+ + + | | 0 | Breathing | | | | 9 | Spontaneous | | | | 3 | ly | | | | 6 | | | +----+---+ + + | | 0 | an stop | | | | 9 | data | | | | 3 | | | | | 6 | | | +----+---+ + + | | 0 | Extubated | | | | 9 | Awake | | | | 4 | | | | | 3 | | | +----+---+ + + | | 0 | An Stop | Patient handed off to recovery nurse. | | | 4 | | | | | 3 | | | +----+---+ + + +------+ | Meds | +------+ + + + | Name | Total | + + + | lidocaine 2% | 100 mg | + + + | propofol (DIPRIVAN) injection | 200 mg | | (bolus) (20 mL) | | + + + | propofol | 60.84 mg | + + + | dexamethasone | 10 mg | + + + | ondansetron | 4 mg | + + + | HYDROmorphone | 0.4 mg | + + + | lactated ringers (LR) infusion | 1,000 mL | + + + + + | Name | + + | N2O Flow Rate (L/Min) | + + | O2 Flow Rate (L/Min) | + + | Insp O2 | + + | Exp SEV | + + | Air Flow Rate (L/Min) | + + + + | No blood administrations on file. | + + +--------+ + + + | Type | Details | Placement | Removal | +--------+ + + + | Read | 10/09/18; 918; Bilateral; | 10/09/18918 by | | | only - | perineum | Elvia Malik RN | | | | | | | | Incisi | | | | | on | | | | +--------+ + + + | Periph | 10/09/18; 818; Right; Anterior | 10/09/18818 by | 10/09/18 1105 by | | eral | (palmar); Forearm; | Juancarlos Padilla RN | Marcy Wayne RN | | IV | cets-pcq-pfissp catheter system; | | | | | 20 gauge; no longer indicated; | | | | | 10/09/18; 1105 | | | +--------+ + + + | Airway | Placement Date: 10/09/18; | 10/09/18 0850 by | 10/09/18 0943 by | | | Placement Time: 0850 (created via | Fabian Lugo | Fabian Lugo | | | procedure documentation); Mask | MD Sandrita | MD Sandrita | | | Ventilation: EZ; Attempts: 1; | | | | | Airway Type: laryngeal mask; | | | | | Size: 4; Trauma: none; Placement | | | | | Check: exhaled CO2 detection | | | | | device, bilateral chest rise, | | | | | breath sounds equal bilaterally; | | | | | Removal Date: 10/09/18; Removal | | | | | Time: 942; Additional Comments: | | | | | Atraumatic LMA placement with | | | | | quality seat and seal. | | | +--------+ + + + documented in this encounter Social History + +-------+ +--------+ + | [...] | + +--------+ + + + | ANE AIRWAY NOTE | Routin | 10/09/2018 | | Results for this | | | e | 8:58 AM | | procedure are in the | | | | PST | | results section. | + +--------+ + + + documented in this encounter Results Anesthesia Airway Note (10/09/2018 8:58 AM PST) + + + | Narrative | Performed At | + + + | Fabian Dwyer MD 10/09/2018 8:59 Anesthesia Airway | | | Placement 10/09/2018 8:50 Preprocedure check: patient identified, | | | oxygen, airway assessed, suction, airway equipment checked and | | | patient reassessment prior to induction Mask ventilation: easy | | | Attempts: 1 Airway type: laryngeal mask Size: 4 Cuffed: cuffed | | | Route, reference point: center of mouth Tube secured with: adhesive | | | tape Trauma: none Tube placement verification: bilateral chest rise, | | | equal bilateral breath sounds and carbon dioxide detection | | | Performing provider: FABIAN DWYER Comments: Atraumatic | | | LMA placement with quality seat and seal. Electronically Signed | | | by: Fabian Dwyer MD | | | ESig date/time: 10/09/2018 8:58 | | + + + + + | Procedure Note | + + | Fabian Dwyer MD - 10/09/2018 8:58 AM PST Anesthesia Airway | | Placement10/09/2018 8:50Preprocedure check: patient identified, oxygen, airway assessed, | | suction, airway equipment checked and patient reassessment prior to inductionMask | | ventilation: easyAttempts: 1Airway type: laryngeal maskSize: 4Cuffed: cuffedRoute, | | reference point: center of mouthTube secured with: adhesive tapeTrauma: noneTube | | placement verification: bilateral chest rise, equal bilateral breath sounds and carbon | | dioxide detectionPerforming provider: FABIAN DWYERComments: Atraumatic LMA | | placement with quality seat and seal.Electronically Signed by: aFbian Dwyer MD | | ESig date/time: 10/09/2018 8:58 | |Route, reference point: center of mouth | |Tube secured with: adhesive tape | |Trauma: none | |Tube placement verification: bilateral chest rise, equal bilateral breath sounds and carbon dioxide detection | |Performing provider: FABIAN DWYER | | | |Comments: Atraumatic LMA placement with quality seat and seal. | | | | | |Electronically Signed by: Fabian Dwyer MD ESi date/time: 10/09/2018 8:58 | | | + + documented in this encounter Visit Diagnoses Not on filedocumented in this encounter Administered Medications + +--------+ +-------+------+------+ | Medication Order | MAR | Action | Dose | Rate | Site | | | Action | Date | | | | + +--------+ +-------+------+------+ | dexamethasone (PF) 10 mg/mL | Given | 10/09/19 | 10 mg | | | | injection Intravenous, PRN, | | 19 8:49 | | | | | Starting 10/09/18 at 0849, | | AM PST | | | | | Anesthesia Intra-op | | | | | | + +--------+ +-------+------+------+ +---+---+ | | | +---+---+ + +-------+ +--------+---+---+ | HYDROmorphone (DILAUDID) 2 | Given | 10/09/19 | 0.4 mg | | | | mg/mL injection Intravenous, | | 19 8:47 | | | | | PRN, Pain, Starting Sun10/09/18 at | | AM PST | | | | | 0847, Anesthesia Intra-op | | | | | | + +-------+ +--------+---+---+ +---+---+ | | | +---+---+ + +---------+ +---+---+---+ | lactated ringers (LR) infusion | New Bag | 10/09/19 | | | | | at 10-100 mL/hr, Intravenous, | | 19 8:15 | | | | | CONTINUOUS, Starting Sun10/09/18 | | AM PST | | | | | at 0815, TKO., Pre-op | | | | | | + +---------+ +---+---+---+ +---+---+ | | | +---+---+ + +-------+ +--------+---+---+ | lidocaine (PF) 2% injection | Given | 10/09/19 | 100 mg | | | | Intravenous, PRN, Starting Wed | | 19 8:49 | | | | | 10/09/18 at 0849, Anesthesia | | AM PST | | | | | Intra-op | | | | | | + +-------+ +--------+---+---+ +---+---+ | | | +---+---+ + +-------+ +------+---+---+ | ondansetron (ZOFRAN) injection | Given | 10/09/19 | 4 mg | | | | Intravenous, PRN, Nausea, | | 19 8:49 | | | | | Vomiting, Starting 10/09/18 at | | AM PST | | | | | 0849, Anesthesia Intra-op | | | | | | + +-------+ +------+---+---+ +---+---+ | | | +---+---+ + +-------+ +--------+---+---+ | propofol (DIPRIVAN) injection | Given | 10/09/19 | 200 mg | | | | Intravenous, PRN, Starting Wed | | 19 8:49 | | | | | 10/09/18 at 0849, Anesthesia | | AM PST | | | | | Intra-op | | | | | | + +-------+ +--------+---+---+ +---+---+ | | | +---+---+ + +---------+ + +-------+---+ | propofol (DIPRIVAN) injection | New Bag | 10/09/19 | 25 | 10.1 | | | Intravenous, CONTINUOUS PRN, | | 19 8:57 | mcg/kg/m | mL/hr | | | Starting Sun10/09/18 at 0857, | | AM PST | in | | | | Anesthesia Intra-op | | | | | | + +---------+ + +-------+---+ +---+---+ | | | +---+---+ documented in this encounter"
--- OUTSIDE RECORDS SUMMARY | ~2019-09-23 | XMS | Clinical Summary ---
Demographics + + + | Address | [address] | | | [place] [address] | + + + | Home Phone | | + + + | Preferred Language | Unknown | + + + | Marital Status | Single | + + + | Christian Affiliation | Unknown | + + + | Race | Unknown | + + + | Ethnic Group | Unknown | + + + Author + + + | Author | [facility] | | | and [place]any[place] | + + + | Organization | [facility] | | | and [...] Team Providers + +------+ + | Care Police Patrol Officer Name | Role | Phone | + +------+ + | Melba Arce RN | PCP | Unavailable | + +------+ + Allergies No Known Allergies Medications + + + +---------+------+------+-------+ | Medication | Sig | Dispensed | Refills | Star | End | Statu | | | | | | t | Date | s | | | | | | Date | | | + + + +---------+------+------+-------+ | tamsulosin | Take 1 capsule by | 30 | 0 | 12/2 | | Activ | | (FLOMAX) 0.4 mg CAPS | mouth Daily. | capsule | | 7/20 | | e | | | | | | 18 | | | + + + +---------+------+------+-------+ | | Take 1-2 tablets by | 30 | 0 | 01/0 | | Activ | | HYDROcodone-acetamin | mouth every 6 hours | tablet | | 2/20 | | e | | ophen (NORCO) 5-325 | as needed for Pain. | | | 19 | | | | mg per tablet | | | | | | | + + + +---------+------+------+-------+ Active Problems + + + | Problem | Noted Date | + + + | Smoker - Daily | 10/08/2018 | + + + | Horseshoe kidney | 10/08/2018 | + + + | H/O Kidney stones | 10/08/2018 | + + + Immunizations + + + + | Name | Administration Dates | Next Due | + + + + | INFLUENZA PF | 09/22/2013 | | | TRIVALENT(PED/ADOL/A | | | | DULT), PSKT | | | + + + + | TDAP, (ADOL/ADULT) | 01/21/2014 | | + + + + Family History + + +------+ + | Medical History | Relation | Name | Comments | + + +------+ + | Heart disease | Father | | | + + +------+ + | Cancer | Maternal | | lung | | | Grandmoth | | | | | er | | | + + +------+ + | Prostate cancer | Neg Hx | | | + + +------+ + + +------+ + + | Relation | Name | Status | Comments | + +------+ + + | Father | | Alive | | + +------+ + + | Maternal Grandmother | | | | + +------+ + + | Mother | | Alive | | + +------+ + + Social History + +-------+ +--------+ [...] recent travel history available. | + + Last Filed Vital Signs + + + [...] | | + + + + + Plan of Treatment + + + + + | Health Maintenance | Due Date | Last Done | Comments | + + + + + | Vaccine: | | | | | Pneumococcal 19-64 | 9 | | | | (1 of 1 - PPSV23) | | | | + + + + + | Cervical Cancer | | | | | Screening (Pap) | 3 | | | + + + + + | Vaccine: Influenza | | 09/22/2013 | | | (#1) | 9 | | | + + + + + | Vaccine: | | 01/21/2014 | | | Dtap/Tdap/Td (2 - | 4 | | | | Td) | | | | + + + + + Implants + +-------+--------+ +--------+--------+--------+ | Implanted | Type | Area | Manufacture | Device | Shelf | Model | | | | | r | | Expira | / | | | | | | Identi | tion | Serial | | | | | | fier | Date | / Lot | + +-------+--------+ +--------+--------+--------+ | Stent Uret W/Pstnr Frm 6 | Stent | Left: | ANTONIO ALVAREZ | | 07/04/ | [id number] | | 32 - [id number]: | | Ureter | INCORPORATE | | 2020 | / | | Qty: 1 on 10/09/2018 by | | | D | | | /UF-6 | | Mark Epps MD at | | | | | | 00-R | | [facility] | | | | | | | | [facility] | | | | | | | + +-------+--------+ +--------+--------+--------+ Results Not on filefrom Last 3 Months Insurance + +--------+ +--------+ +---------+--------+ | Payer | Benefi | Subscriber | Effect | Phone | Address | Type | | | t Plan | ID | jazzmine | | | | | | / | | Dates | | | | | | Group | | | | | | + +--------+ +--------+ +---------+--------+ | [employer] | MOD[employer] | [id number] | 10/03/ | [phone] | | Medica | | MEDICAID HMO | HEALTH | | 2018-P | 1 | | id | | | MDCD | | resent | | | | | | HMO [place] | | | | | | + +--------+ +--------+ +---------+--------+ + +--------+ +--------+ + + | Guarantor Name | Accoun | Relation to | Date | Phone | Billing Address | | | t Type | Patient | of | | | | | | | | | | + +--------+ +--------+ + + | Tonya Andrea | Person | Self | [birth year] | [address] | | | al/Fam | | 1985 | [phone] | [place] [address] | | | [place] | | | 8 (Home) | | + +--------+ +--------+ + + Advance Directives + + + + + | Type | Date Recorded | Patient | Explanation | | | | Nurses Medical Assistants Phlebotomists | | + + + + + | Power of | | | | | Life Skills Coordinator | | | | + + + + + | Advance | 10/03/2018 | | | | Directive | 10:38 AM | | | + + + + + + + + + + | Code Status | Date | Date | Comments | | | Activated | Inactivated | | + + + + + | Full Code | 10/09/2018 | 10/09/2018 | | | | 10:02 AM | 1:11 PM | | + + + + +
--- OUTSIDE RECORDS SUMMARY | ~2019-09-23 | XMS | Encounter Summary ---
Demographics + + + | Address | [address] | | | [place] [address] | + + + | Home Phone [...] | [facility] | | | and Giovanyana | + + + | Organization | [facility] | | | and [...] Team Providers + +------+ + | Care Manager Financial Reporting Name | Role | Phone | + [...] | | | | | | | [place] | | | | | | | [...] | | | | | [address] | [address] [place] | | | | | [place] | [place] [id number] | | | | | [address] | [phone] | | | | | [phone] | | | | | | | [place], | | | | | | [address] | | | | | | [place] | | | | | | [address] | | | | | | [phone] | | | | | | | [...] +----+---+ + + | | 0 | [place] | | | | 8 | 43-degrees [...] +----+---+ + + | | 0 | [place] off | | | | 9 | [...] Marcy Wayne RN | | IV | nwbs-ufa-wykvlo catheter system; | | | | | [...] with quality seat and seal.Electronically Signed by: Fabian Dwyer MD | | ESig date/time: 10/09/2018 [...]
--- OUTSIDE RECORDS SUMMARY | ~2019-09-23 | XMS | Encounter Summary ---
Demographics + + + | Address | [address] | | | [place] [address] | + + + | Home Phone | | + + + | Preferred Language | Unknown | + + + | Marital Status | Single | + + + | Jewish Affiliation | Unknown | + + + | Race | Unknown | + + + | Ethnic Group | Unknown | + + + Author + + + | Author | [facility] | | | and Giovanyana | + + + | Organization | [facility] | | | and [...] Team Providers + +------+ + | Care Salesperson Men'S And Boys' Clothing Name | Role | Phone | + [...] | | | | | | | [place] | | | | | | | [...] + + | 10/09/ | Surgery | [facility] | Mark Epps | Cystoscopy, left | | 2019 | | MED CTR OR INTRA OP | MD [address] | ureteroscopy laser | | | | [address] | [address] [place] | lithotripsy and | | | | [place] | [address] | stent | | | | [address] | | | | | | [phone] | | | +--------+---------+ + + + [...] fever and some pain. Take prescribed or hgir-qgj-pjyqmlv pain medi cine as instructed by your [...] and vomiting Problems urinating Date Last Reviewed: 10/08/201619998266-4719 [employer] [address] [place] [address]. All righ ts reserved. This information is [...] lasts more than a day, a fever [id number] (38 C), or trouble urinating. Date Last Reviewed: 10/08/201619990781-9601 [employer] [address] [place] [address], [place] [address]. All righ ts reserved. This information is [...] [facility] | | | | | | at:[phone]. | | | | + + + [...] test was developed and | | LAB [facility] | | | | its performance | | - BKR | | | | characteristicsdetermine | | | | | | d by [employer]. It has not | | | | [...] | REFERENCE LAB | | ALAYNA Johnson [phone] Ems Educator: Eduin Dominguez MD, Phone: | YUD[facility]OR[facility] | | [phone] | | + + + + + + + + | Performing | Address | City/State/Zipcode | Phone Number | | Organization | | | | + + + + + | REFERENCE LAB | [address] | [place] [address] | [phone] | | [facility] - [address] | Drive [...] | 1.010, 1.015, | | | | [place], | | 1.020, 1.025 | | | | POC | | | | | + + + + + + | Lot Number | [id number] | | | | + + + [...]
--- OUTSIDE RECORDS SUMMARY | ~2019-09-23 | XMS | Clinical Summary ---
Demographics + + + | Address | [address] | | | [place] [address] | + + + | Home Phone | | + + + | Preferred Language | Unknown | + + + | Marital Status | Single | + + + | Hinduism Affiliation | Unknown | + + + | Race | Unknown | + + + | Ethnic Group | Unknown | + + + Author + + + | Author | [facility] | | | and Giovany[place] | + + + | Organization | [facility] | | | and Giovanyana [...] Team Providers + +------+ + | Care Paper Twister Name | Role | Phone | + [...] | ANTONIO ALVAREZ | | 07/04/ | [id number] | | 32 - [id number]: | | Ureter | INCORPORATE | | 2020 | / | | Qty: 1 on 10/09/2018 by | | | D | | | /UF-6 | | aMrk Epps MD at | | | | | | 00-R | | [facility] | | | | | | | | [facility] | | | | | | | [...] | [employer] | MODA | [id number] | 10/03/ | [phone] | | Medica | | MEDICAID HMO [...] | 1985 | [phone] | [place] [address] | | | [place] | | | 8 (Home) | | + +--------+ +--------+ + + Advance Directives + + + + + | Type | Date Recorded | Patient | Explanation | | | | Warper Tender | | + + + + + | Power of | | | | | Waiter/Waitress Club | | | | + + + [...]
--- OUTSIDE RECORDS SUMMARY | ~2019-09-23 | XMS | Encounter Summary ---
Demographics + + + | Address | [address] | | | [place] [address] | + + + | Home Phone [...] + + + | Author | [facility] | | | and Giovanyana | + + + | Organization | [facility] | | | and Giovanyana [...] Team Providers + +------+ + | Care Banquet Set Up Person Name | Role | Phone | + [...] Jay [place] | | | | | [phone] | [place] [address] | | +--------+ + + + + [...]
--- OUTSIDE RECORDS SUMMARY | ~2019-09-23 | XMS | Encounter Summary ---
Demographics + + + | Address | [address] | | | [place] [address] | + + + | Home Phone | | + + + | Preferred Language | Unknown | + + + | Marital Status | Single | + + + | Buddhist Affiliation | Unknown | + + + | Race | Unknown | + + + | Ethnic Group | Unknown | + + + Author + + + | Author | [facility] | | | and Giovanyana | + + + | Organization | [facility] | | | and Giovanyana | + [...] Team Providers + +------+ + | Care Brimmer Blocker Name | Role | Phone | + [...] [place] | | | | | | [address] | | | | | | [phone] | | | +--------+ + + + [...]
--- OUTSIDE RECORDS SUMMARY | ~2019-09-23 | XMS | Encounter Summary ---
Demographics + + + | Address | [address] | | | [place] [address] | + + + | Home Phone | | + + + | Preferred Language | Unknown | + + + | Marital Status | Single | + + + | Bahai Affiliation | Unknown | + + + | Race | Unknown | + + + | Ethnic Group | Unknown | + + + Author + + + | Author | [facility] | | | and Giovanyana | + + + | Organization | [facility] | | | and Giovanyana [...] Team Providers + +------+ + | Care Caregiver Services Home Name | Role | Phone | + +------+ + | Melba Arce RN | PCP | Unavailable | + +------+ + Reason for Referral Evaluate & Treat (Routine) +--------+ + + + + + | Status | Reason | Specialty | Diagnoses / | Referred By | Referred To | | | | | Procedures | Contact | Contact | +--------+ + + + + + | Closed | Specialty | Urology | Diagnoses | [place], | [place], | | | Services | | Left | Tye Sahu, | Mark Hogan, | | | Required | | ureteral | MD [address] | MD [address] | | | | | stone | [address] | [address] [place] | | | | | [place] | [facility] | [place] | | | | | kidney | [place], | [address] Phone: | | | | | | [place] | [phone] | | | | | | [address] | Fax: | | | | | | Phone: | [phone] | | | | | | [phone] | | | | | | | Fax: | | | | | | | [phone] | | +--------+ + + + + + Reason for Visit + + + | Reason | Comments | + + + | Flank Pain | | + + + Encounter Details +--------+ + + + + | Date | Type | Department | Care Team | Description | +--------+ + + + + | 10/03/ | Emergency | [facility] | Tye Arce, | Left ureteral stone | | 2018 | | [facility] | MD [address] | (Primary Dx); | | | | CENTER [address] | [facility] [place] | [place] | | | | [place], [place] | [place] [address] | | | | | [address] | [phone] | | | | | [phone] | | | +--------+ + + + + Social History + +-------+ +--------+------+ | Tobacco Use | Types | Packs/Day | Years | Date | | | | | Used | | + +-------+ +--------+------+ | Current Every Day | | 1 | | | | Smoker | | | | | + +-------+ +--------+------+ + + +---------+ + | Alcohol Use | Drinks/Week | oz/Week | Comments | + + +---------+ + | Yes | | | | + + +---------+ + [...] + + + | Blood Pressure | 136/88 | 10/03/2018 12:29 PM | | | | | PST | | + + + + + | Pulse | 83 | 10/03/2018 12:29 PM | | | | | PST | | + + + + + | Temperature | 37.1 C (98.7 F) | 10/03/2018 9:28 AM | | | | | PST | | + + + + + | Respiratory Rate | 16 | 10/03/2018 9:28 AM | | | | | PST | | + + + + + | Oxygen Saturation | 100% | 10/03/2018 12:29 PM | | | | | PST | | + + + + + | Inhaled Oxygen | - | - | | | Concentration | | | | + + + + + | Weight | 67.6 kg (149 lb) | 10/03/2018 9:28 AM | | | | | PST | | + + + + + | Height | 174 cm (5' 8.5") | 10/03/2018 9:28 AM | | | | | PST | | + + + + + | Body Mass Index | 22.33 | 10/03/2018 9:28 AM | | | | | PST | | + + + + + documented in this encounter Discharge Instructions Instructions Tye Arce MD - 10/03/2018Take the medicine as prescribed Follow-up with urology Return immediately for [id number] pain, fever, or other concerns AttachmentsThe following attachments cannot be sent through Care Everywhere.Kidney Stones, Understanding ([place] Citizen)documented in this encounter Medications at Time of [...] + +---------+ + + | | Take 1 tablet by | | 0 | | | | HYDROcodone-acetamin | mouth every 6 hours | | | | 8 | | ophen (NORCO) 5-325 | as needed for Pain. | | | | | | mg per tablet | | | | | | + + + +---------+ + + | | Take 1-2 tablets by | 16 | 0 | 10/03/20 | | | HYDROcodone-acetamin | mouth every 6 hours | tablet | | 18 | 8 | | ophen (NORCO) 5-325 | as needed for Pain. | | | | | | mg per tablet | | | | | | + + + +---------+ + + | ibuprofen | Take 1 tablet by | 20 | 0 | 10/03/20 | | | (ADVIL,MOTRIN) 600 | mouth every 6 hours | tablet | | 18 | 9 | | MG tablet | for 5 days. | | | | | + + + +---------+ + + | ondansetron | Take 1 tablet by | 12 | 0 | 10/03/20 | | | (ZOFRAN ODT) 4 mg | mouth every 8 hours | tablet | | 18 | 8 | | disintegrating | as needed for up to | | | | | | tablet | 12 doses. | | | | | + + + +---------+ + + documented as of this encounter Plan of Treatment + + +--------+ + + | Name | Type | Priori | Associated Diagnoses | Order Schedule | | | | ty | | | + + +--------+ + + | * [facility] | Outpatient | Routin | Left ureteral | Ordered: 10/03/2018 | | - [facility] Referral | Referral | e | stone [place] | | | | | | kidney | | + + +--------+ + + documented as of this encounter Procedures + +--------+ + + + | Procedure Name | Priori | Date/Time | Associated Diagnosis | Comments | | | ty | | | | + +--------+ + + + | XR ABDOMEN AP | STAT | 10/03/2018 | | Results for this | | | | 11:29 AM | | procedure are in the | | | | PST | | results section. | + +--------+ + + + | URINALYSIS WITH | STAT | 10/03/2018 | | Results for this | | MICROSCOPIC WITH | | 10:54 AM | | procedure are in the | | CULTURE IF INDICATED | | PST | | results section. | + +--------+ + + + | CULTURE, URINE | STAT | 10/03/2018 | | Results for this | | | | 10:54 AM | | procedure are in the | | | | PST | | results section. | + +--------+ + + + | , SERUM, | STAT | 10/03/2018 | | Results for this | | QUAL | | 10:12 AM | | procedure are in the | | | | PST | | results section. | + +--------+ + + + | CBC WITH | STAT | 10/03/2018 | | Results for this | | DIFFERENTIAL | | 9:44 AM | | procedure are in the | | | | PST | | results section. | + +--------+ + + + | BASIC METABOLIC | STAT | 10/03/2018 | | Results for this | | PANEL | | 9:44 AM | | procedure are in the | | | | PST | | results section. | + +--------+ + + + documented in this encounter Results XR Abdomen AP (10/03/2018 11:29 AM PST) + + | Specimen | + + | | + + + + + | Narrative | Performed At | + + + | XR ABDOMEN 1 VW 10/03/2018 11:28 AM HISTORY: Abdominal pain. | [facility] | | COMPARISON: None. FINDINGS: There is a nonobstructive bowel gas | | | pattern with no definite evidence for free air. Moderate stool | | | retention is seen. There are no acute osseous abnormalities. A | | | phlebolith is in the pelvis left of midline. IMPRESSION - | | | Nonobstructive bowel gas pattern, moderate stool retention. | | | Dictated and Signed by: Pro Cardenas MD Electronically signed: | | | 10/03/2018 11:50 AM | | + + + + + | Procedure Note | + + | Matt, Rad Results In - 10/03/2018 11:53 AM PST XR ABDOMEN 1 VW 10/03/2018 11:28 AM | | | | HISTORY: Abdominal pain. | | | | COMPARISON: None. | | | | FINDINGS: | | There is a nonobstructive bowel gas pattern with no definite evidence for free | | air. Moderate stool retention is seen. There are no acute osseous abnormalities. | | A phlebolith is in the pelvis left of midline. | | | | IMPRESSION - | | Nonobstructive bowel gas pattern, moderate stool retention. | | | | Dictated and Signed by: rPo Cardenas MD | | Electronically signed: 10/03/2018 11:50 AM | + + + +---------+ + + | Performing | Address | City/State/Zipcode | Phone Number | | Organization | | | | + +---------+ + + | [facility] | | | | + +---------+ + + Culture, Urine (10/03/2018 10:54 AM PST) + + + + + + | Component | Value | Ref Range | Performed | Pathologist | | | | | At | Signature | + + + + + + | Culture | 50,000 CFU/ml Mixed Gram | | [facility] | | | | Positive FloraComment: | | [facility] | | | | Suggests contamination | | MEDICAL | | | | with urogenital or skin | | CENTER - | | | | franchesca.No further work-up | | LABORATORY | | | | to follow. | | | | + + + [...] [address] | [place] | [phone] | | [facility] | | [address] | | | - LABORATORY | | | | + + + + + Urinalysis with Microscopic with Culture if Indicated (10/03/2018 10:54 AM PST) + + + + + + | Component | Value | Ref Range | Performed | Pathologist | | | | | At | Signature | + + + + + + | Color | Straw | Light Yellow, | [facility] | | | | | Yellow, Straw | [facility] | | | | | | MEDICAL | | | | | | CENTER - | | | | | | LABORATORY | | + + + + + + | Clarity | Clear | Clear | [facility] | | | | | | [facility] | | | | | | MEDICAL | | | | | | CENTER - | | | | | | LABORATORY | | + + + + + + | pH, Urine | 6.0 | 5.0 - 8.0 | [facility] | | | | | | [facility] | | | | | | MEDICAL | | | | | | CENTER - | | | | | | LABORATORY | | + + + + + + | Specific | 1.009 | 1.001 - 1.030 | [facility] | | | [place] | | | [facility] | | | | | | MEDICAL | | | | | | CENTER - | | | | | | LABORATORY | | + + + + + + | Protein, | Negative | Negative | [facility] | | | Urine | | | [facility] | | | | | | MEDICAL | | | | | | CENTER - | | | | | | LABORATORY | | + + + + + + | Blood, | Large (A) | Negative | [facility] | | | Urine | | | [facility] | | | | | | MEDICAL | | | | | | CENTER - | | | | | | LABORATORY | | + + + + + + | Glucose, | Negative | Negative | [facility] | | | Urine | | | [facility] | | | | | | MEDICAL | | | | | | CENTER - | | | | | | LABORATORY | | + + + + + + | Ketones, | Negative | Negative | [facility] | | | Urine | | | [facility] | | | | | | MEDICAL | | | | | | CENTER - | | | | | | LABORATORY | | + + + + + + | Bilirubin, | Negative | Negative | [facility] | | | Urine | | | [facility] | | | | | | MEDICAL | | | | | | CENTER - | | | | | | LABORATORY | | + + + + + + | Nitrite, | Negative | Negative | [facility] | | | Urine | | | [facility] | | | | | | MEDICAL | | | | | | CENTER - | | | | | | LABORATORY | | + + + + + + | Leukocyte | Negative | Negative | [facility] | | | Esterase, | | | [facility] | | | Urine | | | MEDICAL | | | | | | CENTER - | | | | | | LABORATORY | | + + + + + + | Urobilinoge | Negative | 0.2 mg/dL, 1.0 | [facility] | | | n, Urine | | mg/dL, Negative | [facility] | | | | | | MEDICAL | | | | | | CENTER - | | | | | | LABORATORY | | + + + + + + | WBC UA | 10-15 (A) | 0 - 2 /HPF | [facility] | | | | | | [facility] | | | | | | MEDICAL | | | | | | CENTER - | | | | | | LABORATORY | | + + + + + + | RBC UA | 25-50 (A) | 0 - 2 /HPF | [facility] | | | | | | [facility] | | | | | | MEDICAL | | | | | | CENTER - | | | | | | LABORATORY | | + + + + + + | SQUAMOUS | 5-10 (A) | 0 - 2 /LPF | [facility] | | | EPITHELIAL | | | [facility] | | | UA | | | MEDICAL | | | | | | CENTER - | | | | | | LABORATORY | | + + + + + + | BACTERIA UA | 1+ (A) | Negative /HPF | [facility] | | [...] + + | URINE | Urine Culture Set Up | | [facility] | | | COMMENT | | | [facility] | | [...] + + | [facility] | [address] | [place] | [phone] | | [facility] | | [address] | | | - LABORATORY | | | | + + + + + , Serum, Qual (10/03/2018 10:12 AM PST) + + + + + + | Component | Value | Ref Range | Performed | Pathologist | | | | | At | Signature | + + + + + + | hCG Screen, | Negative | Negative | [facility] | | | Serum | | | [facility] | | | | | | MEDICAL | | | | | | CENTER - | | | | | | LABORATORY | | + + + + + + + + | Specimen | + + | Blood | + + + + + + + | Performing | Address | City/State/Zipcode | Phone Number | | Organization | | | | + + + + + | [facility] | [address] | [place] | [phone] | | [facility] | | [address] | | | - LABORATORY | | | | + + + + + Basic Metabolic Panel (10/03/2018 9:44 AM PST) + + + + + + | Component | Value | Ref Range | Performed | Pathologist | | | | | At | Signature | + + + + + + | Na | 135 (L) | 136 - 149 | [facility] | | | | | mmol/L | [facility] | | | | | | MEDICAL | | | | | | CENTER - | | | | | | LABORATORY | | + + + + + + | K | 3.8 | 3.5 - 5.1 | [facility] | | | | | mmol/L | [facility] | | | | | | MEDICAL | | | | | | CENTER - | | | | | | LABORATORY | | + + + + + + | Cl | 103 | 98 - 109 mmol/L | [facility] | | | | | | [facility] | | | | | | MEDICAL | | | | | | CENTER - | | | | | | LABORATORY | | + + + + + + | CO2 | 24 | 24 - 31 mmol/L | [facility] | | | | | | [facility] | | | | | | MEDICAL | | | | | | CENTER - | | | | | | LABORATORY | | + + + + + + | Anion Gap | 8 | 3 - 16 mmol/L | [facility] | | | | | | [facility] | | | | | | MEDICAL | | | | | | CENTER - | | | | | | LABORATORY | | + + + + + + | Glucose | 92 | 70 - 109 mg/dL | [facility] | | | | | | [facility] | | | | | | MEDICAL | | | | | | CENTER - | | | | | | LABORATORY | | + + + + + + | BUN | 7 | 7 - 18 mg/dL | [facility] | | | | | | [facility] | | | | | | MEDICAL | | | | | | CENTER - | | | | | | LABORATORY | | + + + + + + | Creatinine | 0.90 | 0.60 - 1.30 | [facility] | | | | | mg/dL | [facility] | | | | | | MEDICAL | | | | | | CENTER - | | | | | | LABORATORY | | + + + + + + | eGFR if not | >60Comment: GLOMERULAR | >=60 | [facility] | | | | FILTRATION | mL/min/1.73m2 | [facility] | | | SUDANESE | RATE,ESTIMATED | | MEDICAL | | | | mL/min/1.37p8Leet than | | CENTER - | | | | 60 Chronic kidney | | LABORATORY | | | | disease,if found over a | | | | | | 3-month period.Less than | | | | | | 15 Kidney failureFor | | | | | | | | | | | | Americans,multiply the | | | | | | calculated GFR by 1.21. | | | | | | | | | | + + + + + + | Calcium | 9.0 | 8.3 - 10.5 | [facility] | | | | | mg/dL | [facility] | | | | | | MEDICAL | | | | | | CENTER - | | | | | | LABORATORY | | + + + + + + | BUN/Creatin | 7.8 | | [facility] | | | ine Ratio | | | [facility] | | | | | | MEDICAL | | | | | | CENTER - | | | | | | LABORATORY | | + + + + + + + + | Specimen | + + | Blood | + + + + + + + | Performing | Address | City/State/Zipcode | Phone Number | | Organization | | | | + + + + + | [facility] | [address] | [place] | [phone] | | [facility] | | [address] | | | - LABORATORY | | | | + + + + + CBC with Differential (10/03/2018 9:44 AM PST) + + + + + + | Component | Value | Ref Range | Performed | Pathologist | | | | | At | Signature | + + + + + + | WBC | 10.4 | 4.0 - 11.0 K/uL | [facility] | | | | | | [facility] | | | | | | MEDICAL | | | | | | CENTER - | | | | | | LABORATORY | | + + + + + + | RBC | 4.24 | 3.70 - 5.20 | [facility] | | | | | M/uL | [facility] | | | | | | MEDICAL | | | | | | CENTER - | | | | | | LABORATORY | | + + + + + + | Hemoglobin | 13.7 | 11.5 - 16.0 | [facility] | | | | | g/dL | [facility] | | | | | | MEDICAL | | | | | | CENTER - | | | | | | LABORATORY | | + + + + + + | Hematocrit | 40.6 | 34.0 - 47.0 % | [facility] | | | | | | [facility] | | | | | | MEDICAL | | | | | | CENTER - | | | | | | LABORATORY | | + + + + + + | MCV | 95.8 | 83.0 - 101.0 fL | [facility] | | | | | | [facility] | | | | | | MEDICAL | | | | | | CENTER - | | | | | | LABORATORY | | + + + + + + | MCH | 32.3 | 28.0 - 35.0 pg | [facility] | | | | | | [facility] | | | | | | MEDICAL | | | | | | CENTER - | | | | | | LABORATORY | | + + + + + + | MCHC | 33.7 | 32.0 - 36.0 | [facility] | | | | | g/dL | [facility] | | | | | | MEDICAL | | | | | | CENTER - | | | | | | LABORATORY | | + + + + + + | RDW-CV | 12.4 | <15.0 % | [facility] | | | | | | [facility] | | | | | | MEDICAL | | | | | | CENTER - | | | | | | LABORATORY | | + + + + + + | RDW-SD | 43.3 | 35.1 - 46.3 fL | [facility] | | | | | | [facility] | | | | | | MEDICAL | | | | | | CENTER - | | | | | | LABORATORY | | + + + + + + | Platelet | 281 | 140 - 440 K/uL | [facility] | | | Count | | | [facility] | | | | | | MEDICAL | | | | | | CENTER - | | | | | | LABORATORY | | + + + + + + | MPV | 9.5 | 6.5 - 12.4 fL | [facility] | | | | | | [facility] | | | | | | MEDICAL | | | | | | CENTER - | | | | | | LABORATORY | | + + + + + + | Immature | 2.2Comment: Low PLT + | 0.9 - 11.2 % | [facility] | | | Platelet | Low IPF are consistent | | [facility] | | | Fraction | with a production | | MEDICAL | | | | disorder. Low PLT + High | | CENTER - | | | | IPF are consistent with | | LABORATORY | | | | destruction mechanism. | | | | + + + + + + | % | 77.7 | 45.0 - 82.0 % | [facility] | | | Neutrophils | | | [facility] | | | | | | MEDICAL | | | | | | CENTER - | | | | | | LABORATORY | | + + + + + + | % | 11.3 (L) | 20.0 - 45.0 % | [facility] | | | Lymphocytes | | | [facility] | | | | | | MEDICAL | | | | | | CENTER - | | | | | | LABORATORY | | + + + + + + | % Monocytes | 7.8 | 4.0 - 12.0 % | [facility] | | | | | | [facility] | | | | | | MEDICAL | | | | | | CENTER - | | | | | | LABORATORY | | + + + + + + | % | 2.4 | 0.0 - 5.0 % | [facility] | | | Eosinophils | | | [facility] | | | | | | MEDICAL | | | | | | CENTER - | | | | | | LABORATORY | | + + + + + + | % Basophils | 0.4 | 0.0 - 1.0 % | [facility] | | | | | | [facility] | | | | | | MEDICAL | | | | | | CENTER - | | | | | | LABORATORY | | + + + + + + | % Immature | 0.4Comment: For | 0.0 - 0.4 % | [facility] | | | Granulocyte | patients, use the | | [facility] | | | s | special reference ranges | | MEDICAL | | | | listed below. | | CENTER - | | | | | | LABORATORY | | + + + + + + | Absolute | 8.08 | 1.80 - 8.50 | [facility] | | | Neutrophils | | K/uL | [facility] | | | | | | MEDICAL | | | | | | CENTER - | | | | | | LABORATORY | | + + + + + + | Absolute | 1.17 | 0.60 - 3.20 | [facility] | | | Lymphocytes | | K/uL | [facility] | | | | | | MEDICAL | | | | | | CENTER - | | | | | | LABORATORY | | + + + + + + | Absolute | 0.81 | 0.00 - 1.00 | [facility] | | | Monocytes | | K/uL | [facility] | | | | | | MEDICAL | | | | | | CENTER - | | | | | | LABORATORY | | + + + + + + | Absolute | 0.25 | 0.00 - 0.40 | [facility] | | | Eosinophils | | K/uL | [facility] | | | | | | MEDICAL | | | | | | CENTER - | | | | | | LABORATORY | | + + + + + + | Absolute | 0.04 | 0.00 - 0.10 | [facility] | | | Basophils | | K/uL | [facility] | | | | | | MEDICAL | | | | | | CENTER - | | | | | | LABORATORY | | + + + + + + | Absolute | 0.04 (H)Comment: For | 0.00 - 0.03 | [facility] | | | Immature | patients, use | K/uL | [facility] | | | Granulocyte | the special reference | | MEDICAL | | | s | ranges listed below. | | CENTER - | | | | | | LABORATORY | | + + + + + + | % nRBC | 0 | 0 - 2 per 100 | [facility] | | | | | WBC's | [facility] | | | | | | MEDICAL | | | | | | CENTER - | | | | | | LABORATORY | | + + + + + + | Absolute | 0.00 | 0.00 - 0.01 | [facility] | | | nRBC | | K/uL | [facility] | | | | | | MEDICAL | | | | | | CENTER - | | | | | | LABORATORY | | + + + + + + + + | Specimen | + + | Blood | + + + + + | Narrative | Performed At | + + + | IMMATURE GRANULOCYTES - For patients, use the following | [facility] | | reference ranges: Trim. Absolute (K/uL) Percentage (%) | [facility] | | 1st 0.003-0.091 K/uL 0.0-0.9% 2nd 0.007-0.247 K/uL | [facility] | | 0.1-2.0% 3rd 0.018-0.456 K/uL 0.1-2.0% | - LABORATORY | + + + + + + + + | Performing | Address | City/State/Zipcode | Phone Number | | Organization | | | | + + + + + | [facility] 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 | + + documented in this encounter Administered Medications + +--------+ +--------+------+------+ | Medication Order | MAR | Action | Dose | Rate | Site | | | Action | Date | | | | + +--------+ +--------+------+------+ | HYDROmorphone (DILAUDID) | Given | 10/03/20 | 0.5 mg | | | | injection 0.5 mg 0.5 mg, | | 18 12:12 | | | | | Intravenous, ONCE, Betty 10/03/18 | | PM PST | | | | | at 1200, For 1 dose | | | | | | + +--------+ +--------+------+------+ +---+---+ | | | +---+---+ + +-------+ +-------+---+---+ | ketorolac (TORADOL) injection | Given | 10/03/20 | 30 mg | | | | 30 mg 30 mg, Intravenous, ONCE, | | 18 12:12 | | | | | Betty 10/03/18 at 1200, For 1 dose | | PM PST | | | | + +-------+ +-------+---+---+ +---+---+ | | | +---+---+ + +-------+ +------+---+---+ | ondansetron (ZOFRAN) injection | Given | 10/03/20 | 4 mg | | | | 4 mg 4 mg, Intravenous, ONCE, | | 18 9:50 | | | | | Betty 10/03/18 at 0935, For 1 dose | | AM PST | | | | + +-------+ +------+---+---+ +---+---+ | | | +---+---+ + +---------+ +---------+-------+---+ | sodium chloride 0.9% (NS) bolus | New Bag | 10/03/20 | 500 mLs | 250 | | | 500 mL 500 mL, Intravenous, | | 18 9:50 | | mL/hr | | | Administer over 2 Hours, ONCE, | | AM PST | | | | | Betty 10/03/18 at 0935, For 1 dose | | | | | | + +---------+ +---------+-------+---+ +---+---+ | | | +---+---+ + +-------+ +--------+---+---+ | tamsulosin (FLOMAX) capsule 0.4 | Given | 10/03/20 | 0.4 mg | | | | mg 0.4 mg, Oral, ONCE, Betty | | 18 12:12 | | | | | 10/03/18 at 1205, For 1 dose, May | | PM PST | | | | | open capsule and sprinkle over | | | | | | | acidic soft food (applesauce, | | | | | | | yogurt) or in a small quantity of | | | | | | | acidic fruit juice (orange, | | | | | | | grape). Do not crush, chew or | | | | | | | dissolve granules., | | | | | | + +-------+ +--------+---+---+ +---+---+ | | | +---+---+ documented in this encounter
--- OUTSIDE RECORDS SUMMARY | ~2019-09-23 | XMS | Encounter Summary ---
Demographics + + + | Address | [address] | | | [place] [address] | + + + | Home Phone | | + + + | Preferred Language | Unknown | + + + | Marital Status | Single | + + + | Religion Affiliation | Unknown | + + + | Race | Unknown | + + + | Ethnic Group | Unknown | + + + Author + + + | Author | [facility] | | | and [place] | + + + | Organization | [facility] | | | and [...] Team Providers + +------+ + | Care Surfboard Maker Name | Role | Phone | [...] | | kidney | [place], | [address] Phone: | | | | | | [place] | [phone] | | | | | | [phone] | Fax: | | | | | | Phone: | [phone] | | | | | | [phone] | | | | | | | Fax: | | | | | | | [phone] | | +--------+ + + + + + Reason for Visit + + + | Reason | Comments | + + + | Flank Pain | | + + + Encounter Details +--------+ + + + + | Date | Type | Department | Care Team | Description | +--------+ + + + + | 10/03/ | Emergency | [facility] | Tye Arce, | Left ureteral stone | | 2018 | | [facility] | MD [address] | (Primary Dx); | | | | CENTER [address] | [facility] | [facility] | | | | [place], [place] | [place] [address] | | | | | [address] | [phone] | | | | | [phone] | | | +--------+ + + + [...] prescribed Follow-up with urology Return immediately for eew-ja-snounmx pain, fever, or other concerns AttachmentsThe following attachments cannot be sent through Care Everywhere.Kidney Stones, Understanding (Cameroonian)documented in this encounter Medications at Time of [...] Dictated and Signed by: Pro Cardenas MD | | Electronically signed: 10/03/2018 [...] [address] | [facility] [place] | [phone] | | [facility] | | [address] | | | - LABORATORY | | [...] - 1.030 | [facility] | | | [place] | | | [facility] | | [...] [address] | [facility] [place] | [phone] | | [facility] | | [address] | | | - LABORATORY | | [...] + | [facility] | [address] | [facility] [place] | [phone] | | [facility] | | [address] | | | - LABORATORY | | [...] mL/min/1.73m2 | [facility] | | | [place] | RATE,ESTIMATED | | MEDICAL | | | | mL/min/1.92u3Kcbo than | | CENTER - | | [...] ST. | [address] | [place] | [phone] | | [facility] | | [address] | | | - LABORATORY | | [...] ranges: Trim. Absolute (K/uL) Percentage (%) | [facility] | | 1st 0.003-0.091 K/uL 0.0-0.9% 2nd 0.007-0.247 K/uL | [facility] | | 0.1-2.0% 3rd 0.018-0.456 K/uL 0.1-2.0% | - LABORATORY | + + + + + + + + | Performing | Address | City/State/Zipcode | Phone Number | | Organization | | | | + + + + + | [facility] | [address] | [place] | [phone] | | [facility] | | [address] | | | - LABORATORY | | [...]
--- OUTSIDE RECORDS SUMMARY | ~2019-09-23 | XMS | Encounter Summary ---
Demographics + + + | Address | [address] | | | [place] [address] | + + + | Home Phone | | + + + | Preferred Language | Unknown | + + + | Marital Status | Single | + + + | Catholic Affiliation | Unknown | + + + | Race | Unknown | + + + | Ethnic Group | Unknown | + + + Author + + + | Author | and [facility] | | | and Giovanyana | + + + | Organization | and [facility] | | | and [...] Team Providers + +------+ + | Care Transportation Program Director Name | Role | Phone | + [...] | | | | | [place] | [facility] | [place], [place] | | | | | kidney | [place], | [address] Phone: | | | | | | [place] | [phone] | | | | | | [address] | Fax: | | | | | | Phone: | [phone] | | | | | | [phone] | | | | | | | Fax: | | | | | | | [phone] | | +--------+ + + + + + Encounter Details +--------+---------+ + + + | Date | Type | Department | Care Team | Description | +--------+---------+ + + + | 10/07/ | Office | [facility] | Mark Epps | Kidney stones | | 2018 | Visit | [address] | MD Edison [address] | (Primary Dx); | | | | [place], [place] | [place], [place] | Pyuria; Proteinuria, | | | | [address] | [id number] | unspecified type; | | | | [phone] | | Microscopic | | | | [...] October 09, 2018 at 9:00 AM at [facility]. Please report to the Surgery and Procedure [...] you home after surgery. Call us at [phone] with any questions. [x] Pain management booklet [...] UA, POC Negative Negative, 100 mg/dL Specific [place], UA, POC 1.015 1.001 - 1.030 Blood, [...] have not thoroughly proofread this note, and distribution supervisor errors are very likely to occur. CC: [...] [address] | [facility] | [phone] | | [facility] | | [address] | | | - LABORATORY | | [...] 1.001 - 1.030 | | | | [place], | | | | | | UA, [...]
--- OUTSIDE RECORDS SUMMARY | 2019-09-23 05:00 | XMS ---
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 LIONEL KELLER. [facility] MADHAV MEEHAN 10/09/2018-Current PHONE: [phone] Madhav oMrales Treatment Current PAC PHONE: Unknown Lavonne has no Care Guidelines for this patient. E.DMakayla VISIT COUNT (12 MO.) 1 [facility] [address] [place] [address] TOTAL 5 NOTE: Visits indicate total known visits. ED/UCC VISIT TRACKING (12 MO.) 09/23/2019 04:58 ANJEL Jerry [place] TYPE: Emergency COMPLAINT: - EAR PAIN 07/28/2019 20:04 ANJEL Jerry [place] TYPE: Emergency COMPLAINT: - FLANK PAIN/LEFT W/O BEING SEEN DIAGNOSES: - Unspecified abdominal pain - Proc/trtmt not crd out d/t pt lv bef seen by [facility] care prov 10/06/2018 07:36 ANJEL Jerry [place] TYPE: Emergency COMPLAINT: - L ABD PAIN DIAGNOSES: - Nicotine dependence, unspecified, uncomplicated - Other terminal computer operator (current) drug therapy - Constipation, unspecified - Unspecified abdominal pain [facility]2018 [facility] DIAGNOSES: - Kidney [...] visits to display in this time frame [id number]
[2019-09-23] MEDS ORDERED: AUGMENTIN 875-1 EACH PO (05:48)
[2019-09-23] MEDS ORDERED: NORCO 5-325 TA1 EACH PO (05:48)
== END 2019-09-23 06:05 | disposition home or self-care (01) ==
LOC: ED 04:58
DX: H66.92 Otitis media, unspecified, left ear (principal); F17.200 Nicotine dependence, unspecified, uncomplicated; Z87.442 Personal history of urinary calculi
CPT/HCPCS: 99282

== ENCOUNTER 2022-04-16 15:23 | Emergency (ER) | payer OTHER ==
[~2022-04-16] VITALS: Ht 172.7 cm; Wt 64.9 kg
[2022-04-16] MEDS ORDERED: CEPHALEXIN500 M1 PO (17:45)
== END 2022-04-16 17:51 | disposition home or self-care (01) ==
LOC: ED 15:23
DX: L03.124 Acute lymphangitis of left upper limb (principal); T22.212A Burn of second degree of left forearm, initial encounter; F17.200 Nicotine dependence, unspecified, uncomplicated; X15.0XXA Contact with hot stove (kitchen), initial encounter
CPT/HCPCS: 36415; 80048; 85025; 96365; 99283-25; J0696

== ENCOUNTER 2022-10-02 10:46 | Emergency (ER) | payer OTHER ==
[~2022-10-02] VITALS: Ht 172.7 cm; Wt 70.8 kg
[~2022-10-02 10:46] MED LIST changes: +CEPHALEXIN500 M1 PO
== END 2022-10-02 12:28 | disposition home or self-care (01) ==
LOC: ED 10:46
DX: S20.212A Contusion of left front wall of thorax, initial encounter (principal); S37.92XA Contusion of unspecified urinary and pelvic organ, initial encounter; F17.200 Nicotine dependence, unspecified, uncomplicated; W19.XXXA Unspecified fall, initial encounter
CPT/HCPCS: 71046; 72170; 99284-25; A9270

== ENCOUNTER 2022-11-06 09:05 | Emergency (ER) | payer OTHER ==
[~2022-11-06] VITALS: Ht 172.7 cm; Wt 70.8 kg
== END 2022-11-06 16:25 | disposition short-term general hospital (02) ==
LOC: ED 09:05
DX: U07.1 COVID-19 (principal); N13.2 Hydronephrosis with renal and ureteral calculous obstruction; Q63.1 Lobulated, fused and horseshoe kidney; N39.0 Urinary tract infection, site not specified; F17.200 Nicotine dependence, unspecified, uncomplicated
CPT/HCPCS: 36415; 74176; 80053; 81001; 84703; 85025; 87502; 96365; 96375; 96376; 99285-25; C9803; J0696; J1170; J1885; U0003

== ENCOUNTER 2024-04-06 14:14 | Emergency (ER) | payer OTHER ==
[~2024-04-06] VITALS: Ht 172.7 cm; Wt 70.1 kg
[2024-04-06 15:23] LABS: BILIRUBIN, URINE NEGATIVE (negative); BLOOD/HGB, URINE SMALL (Negative); KETONE, URINE TRACE (Negative); LEUK ESTERASE, URINE NEGATIVE (negative); NITRITE, URINE NEGATIVE (negative); PH, URINE 6.5 (5-7)
[2024-04-06 15:32] LABS: BASOPHILS 0.2 % (0-2); EOSINOPHILS 1.6 % (0-6); HEMATOCRIT 47.3 % (35.0-50.0); HEMOGLOBIN 16.5 g/dL (12.0-18.0); LYMPHOCYTES 6.1 % (24-44); MCHC 34.8 g/dl (30-36); MCV 94.7 fl (81-99); MONOCYTES 5.1 % (0-12); PLATELET COUNT 324 K/uL (140-440); RDW 13.2 (10.5-15.0)
[2024-04-06 15:37] LABS: BACTERIA, URINE 1+ /hpf (negative); CASTS, URINE NONE SEEN \\lpf; CRYSTALS, URINE CALCIUM OXALATE 1+ (0-1+)
[2024-04-06 15:38] LABS: COLLECTION TYPE, URINE CLEAN CATCH; REFLEX CULTURE, URINE Yes (No)
[2024-04-06 15:48] LABS: ALBUMIN 3.8 g/dL (3.4-5.0); ALBUMIN/GLOBULIN RATIO 1.23 (1.1-2.4); ANION GAP 13.4 (7-21); BILIRUBIN, TOTAL 0.7 ng/dL (0.2-1.0); BUN/CREATININE RATIO 12.3 (6.0-28.6); CALCIUM 8.7 mg/dL (8.5-10.1); CREATININE, SERUM 0.65 mg/dL (0.55-1.02); MAGNESIUM 1.8 mg/dL (1.8-2.4); POTASSIUM 3.4 mmol/L (3.5-5.1); PROTEIN, TOTAL 6.9 g/dL (6.4-8.2)
[2024-04-06 17:25] VITALS: BP 166/98
== END 2024-04-06 17:25 | disposition home or self-care (01) ==
LOC: ED 14:14
PROVIDERS: Emergency Medicine
DX: R10.32 Left lower quadrant pain (principal); R19.7 Diarrhea, unspecified; F17.200 Nicotine dependence, unspecified, uncomplicated
CPT/HCPCS: 36415; 74018; 80053; 81001; 83735; 84703; 85025

== ENCOUNTER 2025-01-15 20:10 | Emergency (ER) | payer OTHER ==
[~2025-01-15] VITALS: Ht 172.7 cm; Wt 70.0 kg
[2025-01-15] MEDS ORDERED: NITROFURANTOIN100 MG (20:37)
[2025-01-15 20:54] LABS: BILIRUBIN, URINE POSITIVE (negative); BLOOD/HGB, URINE LARGE (Negative); KETONE, URINE SMALL (Negative); LEUK ESTERASE, URINE TRACE (negative); NITRITE, URINE NEGATIVE (negative); PH, URINE 5.5 (5-7)
[2025-01-15] MEDS ORDERED: MORPHINE SULFATE 4 MG/ML VIAL IV ONE (21:00)
[2025-01-15] MEDS ORDERED: ondansetron HCL 4 MG/2 ML VIAL IV ONE (21:00)
[2025-01-15] MEDS ORDERED: SODIUM CHLORIDE 0.9% 1,000 ML IV ONE (21:00)
[2025-01-15 21:01] LABS: BACTERIA, URINE RARE /hpf (negative); CASTS, URINE NONE SEEN \\lpf; COLLECTION TYPE, URINE CLEAN CATCH; CRYSTALS, URINE NONE SEEN (0-1+); EPITHELIAL CELLS, URINE SQUAMOUS 1+ /lpf (0-1+); RED BLOOD CELLS, URINE >50 /hpf (0-5); REFLEX CULTURE, URINE Yes (No)
[2025-01-15 21:29] LABS: BASOPHILS 0.6 % (0-2); EOSINOPHILS 2.7 % (0-6); HEMATOCRIT 41.3 % (35.0-50.0); HEMOGLOBIN 14.7 g/dL (12.0-18.0); LYMPHOCYTES 23.4 % (24-44); MCH 32.5 (27-36); MCHC 35.5 g/dl (30-36); MCV 91.6 fl (81-99); MONOCYTES 6.3 % (0-12); PLATELET COUNT 319 K/uL (140-440); RBC 4.51 M/ul (4.3-5.7); RDW 12.8 (10.5-15.0)
[2025-01-15 21:43] LABS: ALBUMIN/GLOBULIN RATIO 1.33 (1.1-2.4); ANION GAP 9.9 (7-21); BILIRUBIN, TOTAL 0.8 mg/dL (0.2-1.0); BUN/CREATININE RATIO 18.51 (6.0-28.6); CALCIUM 9.2 mg/dL (8.5-10.1); CREATININE, SERUM 0.81 mg/dL (0.55-1.02); POTASSIUM 2.9 mmol/L (3.5-5.1)
[2025-01-15] MEDS ORDERED: POTASSIUM CHLORIDE 10 MEQ TABCR PO ONE (22:30)
[2025-01-15 23:25] VITALS: BP 159/91
== END 2025-01-15 23:20 | disposition home or self-care (01) ==
LOC: ED 20:10
PROVIDERS: Family Medicine
DX: N39.0 Urinary tract infection, site not specified (principal); N20.0 Calculus of kidney; Q63.1 Lobulated, fused and horseshoe kidney; F17.200 Nicotine dependence, unspecified, uncomplicated; Z79.899 Other long term (current) drug therapy
CPT/HCPCS: 36415; 74176; 80053; 81001; 83690; 84703; 85025; 87088; 99284-25; A9270; J7030